=== PATIENT | female | born 1935 | race Caucasian/White ===

== ENCOUNTER 2017-12-12 10:18 | Emergency (ER) | payer MEDICARE, OTHER ==
[2017-12-12 10:26] VITALS: BP 148/78
--- NOTE | 2017-12-12 10:37 | ER Document Report ---
ED Medical Screen (RME) - General Chief Complaint: Diarrhea Stated Complaint: STOMACH PAIN Time Seen by Provider: 12/12/17 10:34 Notes: 82 years old female was referred down to the ED because of last 5 days of loss of appetite unable to eat anything or drink anything, lost about 36 pounds over the last 6 months. And abdominal discomfort, and red stools for the last few days. Had about loose stools for the last 4 days once a days. Did described the stool as sometimes red but only one stool a day. Denies any fever chills. Denies any chest pain shortness of breath or wheezing. Denies any nausea vomiting. History of atrial fibrillation. I have greeted and performed a rapid initial assessment of this patient. A comprehensive ED assessment and evaluation of the patient, analysis of test results and completion of the medical decision making process will be conducted by additional ED providers. PHYSICAL EXAMINATION: GENERAL: Elderly appeared to be weak HEAD: Atraumatic, normocephalic. EYES: Pupils equal round extraocular movements intact, conjunctiva are normal. ENT: Nares patent NECK: Normal range of motion LUNGS: No respiratory distress Musculoskeletal: Normal range of motion NEUROLOGICAL: Normal speech, normal gait. PSYCH: Normal mood, normal affect. SKIN: Warm, Dry, normal turgor, no rashes or lesions noted. TRAVEL OUTSIDE OF THE [place] IN LAST 30 DAYS: No - Related Data Allergies/Adverse Reactions: No Known Allergies Allergy (Verified 12/12/17 10:23) Past Medical History - Past Medical History Cardiac Medical History: Reports: Hx Hypertension - medicated Denies: Hx Heart Attack Pulmonary Medical History: Denies: Hx Asthma Neurological Medical History: Reports: Hx Cerebrovascular Accident - 15yrs ago. Denies: Hx Seizures GI Medical History: Denies: Hx Hepatitis, Hx Hiatal Hernia, Hx Ulcer Infectious Medical History: Denies: Hx Hepatitis Past Surgical History: Denies: Hx Hysterectomy, Hx Mastectomy, Hx Open Heart Surgery, Hx Pacemaker Physical Exam - Vital signs Vitals: Temp Pulse Resp BP Pulse Ox 97.6 F 84 18 148/78 H 98 12/12/17 10:25 12/12/17 10:25 12/12/17 10:25 12/12/17 10:25 12/12/17 10:25 Course - Vital Signs Vital signs: Temp Pulse Resp BP Pulse Ox 97.6 F 84 18 148/78 H 98 12/12/17 10:25 12/12/17 10:25 12/12/17 10:25 12/12/17 10:25 12/12/17 10:25 Doctor's Discharge - Discharge Referrals: ALYCIA ESTEVES PA-C [Primary Care Provider] - Follow up as needed
[2017-12-12 11:25] LABS: ALANINE AMINOTRANSFERASE 16 U/L (9-52); ALBUMIN 4.1 g/dL (3.5-5.0); ALKALINE PHOSPHATASE 78 U/L (38-126); ANION GAP 16 (5-19); ASPARTATE AMINO TRANSFERASE 25 U/L (14-36); BILIRUBIN,DIRECT 0.5 mg/dL (0.0-0.4); BLOOD UREA NITROGEN 18 mg/dL (7-20); CALCIUM 9.1 mg/dL (8.4-10.2); CARBON DIOXIDE 22 mmol/L (22-30); CHLORIDE 105 mmol/L (98-107); GLUCOSE 119 mg/dL (75-110); LIPASE 166.5 U/L (23-300); POTASSIUM 4.3 mmol/L (3.6-5.0); SODIUM 142.9 mmol/L (137-145); TOTAL PROTEIN 8.1 g/dL (6.3-8.2)
[2017-12-12 11:26] LABS: APPEARANCE,URINE SLIGHTLY-CLOUDY; BILIRUBIN,URINE NEGATIVE (NEGATIVE); GLUCOSE, URINE NEGATIVE (NEGATIVE); KETONES,URINE TRACE mg/dL (NEGATIVE); LEUKOCYTE ESTERASE,URINE SMALL (NEGATIVE); NITRITE,URINE NEGATIVE (NEGATIVE); PROTEIN,URINE 100 mg/dL (NEGATIVE); URINE SPECIFIC GRAVITY 1.025
[2017-12-12 11:30] LABS: COLOR,URINE DARK YELLOW
--- NOTE | 2017-12-12 11:30 | RADIOLOGY REPORT (SQ) ---
EXAM DESCRIPTION: ACUTE ABDOMEN SERIES COMPLETED DATE/TIME: 12/12/2017 11:11 am REASON FOR STUDY: Abdominal pain COMPARISON: None. NUMBER OF VIEWS: Three views. TECHNIQUE: Frontal chest, supine abdomen and upright/ abdomen radiographic images acquired. LIMITATIONS: None. FINDINGS: CHEST: Lungs clear of infiltrates. Cardiomegaly. FREE AIR: None. No abnormal gas collections. BOWEL GAS PATTERN: Nonobstructive pattern. No dilated loops or air fluid levels. CALCIFICATIONS: No suspicious calcifications. HARDWARE: None in the abdomen. SOFT TISSUES: No gross mass or suggestion of organomegaly. BONES: Scoliosis. OTHER: No other significant finding. IMPRESSION: Cardiomegaly. Scoliosis. No acute findings in the abdomen or pelvis. TECHNICAL DOCUMENTATION: JOB ID: [id number] [employer]- All Rights Reserved Reading location - IP/workstation name: [email or web address]
--- NOTE | 2017-12-12 11:42 | ER Document Report ---
ED General - General Mode of Arrival: Ambulatory Information source: Patient TRAVEL OUTSIDE OF THE [place] IN LAST 30 DAYS: No <RUTH ARAUJO - Last Filed: 12/12/17 15:10> <GABRIELLE HERNANDEZ - Last Filed: 12/12/17 19:26> - General Chief Complaint: Diarrhea Stated Complaint: STOMACH PAIN Time Seen by Provider: 12/12/17 10:34 Notes: 82 y.o female with HTN for which she takes Metoprolol and a PMHx of 3 strokes presents to the ED with diarrhea. She reports that about 3 days ago in the morning after waking up she was lying down when she heard a pop in her abd. She states that when she stood up she was dizzy and had a "gel like" diarrhea. She states that she has had loose stool every time she has had a BM since hearing the pop. Pt also reports that she hasn't been hungry and was not able to eat much even though she was making herself eat. Pt denies any pain at the time of the pop and denies any current abd pain or vomiting. Son at bedside also reports that she has recently lost 60 lbs. He states that she was not able to eat any food without vomiting it up for a couple weeks along with her just not wanting to eat. Pt is currently taking Coumadin. (RUTH ARAUJO) - Related Data Allergies/Adverse Reactions: No Known Allergies Allergy (Verified 12/12/17 10:23) Past Medical History - General Information source: Patient - Social History Smoking Status: Never Smoker Chew tobacco use (# tins/day): No Frequency of alcohol use: None Drug Abuse: None Patient has suicidal ideation: No Patient has homicidal ideation: No - Past Medical History Cardiac Medical History: Reports: Hx Hypertension - medicated Denies: Hx Heart Attack Pulmonary Medical History: Denies: Hx Asthma Neurological Medical History: Reports: Hx Cerebrovascular Accident - 15yrs ago. Denies: Hx Seizures Renal/ Medical History: Denies: Hx Peritoneal Dialysis GI Medical History: Denies: Hx Hepatitis, Hx Hiatal Hernia, Hx Ulcer Infectious Medical History: Denies: Hx Hepatitis Past Surgical History: Reports: Hx Appendectomy, Hx Tonsillectomy. Denies: Hx Hysterectomy, Hx Mastectomy, Hx Open Heart Surgery, Hx Pacemaker <RUTH ARAUJO - Last Filed: 12/12/17 15:10> - Social History Family History: Reviewed & Not Pertinent <GABRIELLE HERNANDEZ - Last Filed: 12/12/17 19:26> Review of Systems - Review of Systems Constitutional: See HPI, Other - dizziness, Weight loss - 60lbs EENT: No symptoms reported Cardiovascular: No symptoms reported Respiratory: No symptoms reported Gastrointestinal: See HPI, Diarrhea, Poor appetite, Other - "popping in abd". denies: Abdominal pain, Vomiting Genitourinary: No symptoms reported Female Genitourinary: No symptoms reported Musculoskeletal: No symptoms reported Skin: No symptoms reported Hematologic/Lymphatic: No symptoms reported Neurological/Psychological: No symptoms reported -: Yes All other systems reviewed and negative <RUTH ARAUJO - Last Filed: 12/12/17 15:10> Physical Exam <RUTH ARAUJO - Last Filed: 12/12/17 15:10> <GABRIELLE HERNANDEZ - Last Filed: 12/12/17 19:26> - Vital signs Vitals: Temp Pulse Resp BP Pulse Ox 97.6 F 84 18 148/78 H 98 12/12/17 10:25 12/12/17 10:25 12/12/17 10:25 12/12/17 10:25 12/12/17 10:25 - Notes Notes: PHYSICAL EXAM GENERAL: Alert, interacts well. No acute distress. HEAD: Normocephalic, atraumatic. EYES: Pupils equal, round, and reactive to light. Extraocular movements intact. ENT: Oral mucosa moist, tongue midline. NECK: Full range of motion. Supple. Trachea midline. LUNGS: Clear to auscultation bilaterally, no wheezes, rales, or rhonchi. No respiratory distress. HEART: Regular rate and rhythm. No murmurs, gallops, or rubs. ABDOMEN: Soft. RLQ tender to palp. Non-distended. Bowel sounds present in all 4 quadrants. No guarding, rebound, or rigidity. EXTREMITIES: Moves all 4 extremities spontaneously. No edema, radial and dorsalis pedis pulses 2/4 bilaterally. No cyanosis. NEUROLOGICAL: Alert and oriented x3. Normal speech. PSYCH: Normal affect, normal mood. (RUTH ARAUJO) Course - Laboratory Result Diagrams: 12/12/17 12:32 12/12/17 10:52 <RUTH ARAUJO - Last Filed: 12/12/17 15:10> - Laboratory Result Diagrams: 12/12/17 12:32 12/12/17 10:52 <GABRIELLE HERNANDEZ - Last Filed: 12/12/17 19:26> - Re-evaluation Re-evalutation: 12/12/17 16:01 CT scan shows mild diverticulosis and small ovarian cyst on each side, almost certainly benign. No explanation for the diarrhea and weight loss that she has been having. CBC is unremarkable, CMP shows normal BUN and creatinine, direct bilirubin only slightly elevated at 0.5, cardiac enzymes negative 1, lipase normal, urinalysis shows small blood and small leukocyte esterase, 2+ bacteria, 4 squamous epithelial cells. Patient does not have any symptoms of urinary tract infection at this time, this will be sent for culture and followed up as an outpatient, occult blood is negative, C. difficile toxin PCR is negative. Acute abdominal series which included a chest x-ray does not show any acute process. No indication for admission at this time, no signs of dehydration. At this point patient will be discharged home, encouraged to follow-up as an outpatient with her primary care physician, she will certainly need further workup for the unintentional weight loss of 60 pounds. She should also see GI for her diarrhea should continue. (GABRIELLE HERNANDEZ) - Vital Signs Vital signs: Temp Pulse Resp BP Pulse Ox 97.6 F 84 18 148/78 H 98 12/12/17 10:25 12/12/17 10:25 12/12/17 10:30 12/12/17 10:25 12/12/17 10:25 - Laboratory Laboratory results interpreted by me: 12/12/17 12/12/17 12/12/17 10:52 10:52 12:32 RDW 14.9 H Est GFR (Non-Af Amer) 53 L Glucose 119 H Direct Bilirubin 0.5 H Urine Protein 100 H Urine Ketones TRACE H Urine Blood SMALL H Urine Urobilinogen 2.0 H Ur Leukocyte Esterase SMALL H Discharge <RUTH ARAUJO - Last Filed: 12/12/17 15:10> <GABRIELLE HERNANDEZ - Last Filed: 12/12/17 19:26> - Discharge Clinical Impression: Unintentional weight loss Diarrhea Qualifiers: Diarrhea type: unspecified type Qualified Code(s): R19.7 - Diarrhea, unspecified Condition: Stable Disposition: HOME, SELF-CARE Additional Instructions: Today we did not find any signs of infection. Your CAT scan did not show any infection in your abdomen. Your chest x-ray did not show any infection in your chest or explanation for your cough. I do not know what is causing your diarrhea at this time. You may take Imodium as directed [id number]. Please follow-up with your primary care physician as an outpatient. I am very concerned by her unintentional weight loss. This could be a sign of a problem with your thyroid or a sign of cancer that we did not find today. If your diarrhea continues you will want to follow-up with a dinkey engineer as well. Referrals: ALYCIA ESTEVES PA-C [Primary Care Provider] - Follow up as needed Scribe Attestation: 12/12/17 19:26 I personally performed the services described in the documentation, reviewed and edited the documentation which was dictated to the scribe in my presence, and it accurately records my words and actions. (GABRIELLE HERNANDEZ) Scribe Documentation - Scribe Written by Kandy:: Kandy Acosta 12/12/17 1145 acting as scribe for :: Mickey <RUTH ARAUJO - Last Filed: 12/12/17 15:10>
[2017-12-12] MEDS ORDERED: RINGERS SOLUTION,LACTATED 1,000 ML IV ONE (11:47)
[2017-12-12 13:13] LABS: ABSOLUTE EOSINOPHILS # (AUTO) 0.1 10^3/uL (0.0-0.6); ABSOLUTE LYMPHOCYTES (AUTO) 1.7 10^3/uL (0.5-4.7); ABSOLUTE MONOCYTES (AUTO) 0.4 10^3/uL (0.1-1.4); ABSOLUTE NEUT (AUTO) 2.6 10^3/uL (1.7-8.2); BASOPHILS % (AUTO) 0.5 % (0-2); EOSINOPHILS % (AUTO) 1.8 % (0-6); HEMATOCRIT 37.2 % (36.0-47.0); HEMOGLOBIN 12.4 g/dL (12.0-15.5); LYMPHOCYTES % (AUTO) 35.9 % (13-45); MEAN CORPUSCULAR HEMOGLOBIN 28.5 pg (27.0-33.4); MEAN CORPUSCULAR HGB CONC 33.4 g/dL (32.0-36.0); MEAN CORPUSCULAR VOLUME 85 fl (80-97); MONOCYTES % (AUTO) 7.8 % (3-13); PLATELET COUNT 220 10^3/uL (150-450); RED BLOOD COUNT 4.37 10^6/uL (3.72-5.28); RED CELL DISTRIBUTION WIDTH 14.9 % (11.5-14.0); TOTAL CELLS COUNTED % (AUTO) 100 %; WHITE BLOOD COUNT 4.9 10^3/uL (4.0-10.5)
--- NOTE | 2017-12-12 15:54 | RADIOLOGY REPORT (SQ) ---
EXAM DESCRIPTION: CT ABD/PELVIS WITH IV ORAL COMPLETED DATE/TIME: 12/12/2017 3:26 pm REASON FOR STUDY: RLQ pain, tenderness to palpation COMPARISON: None. TECHNIQUE: CT scan of the abdomen and pelvis performed using helical scanning technique with dynamic intravenous contrast injection. Oral contrast. Images reviewed with lung, soft tissue, and bone win dows. Reconstructed coronal and sagittal MPR images reviewed. Delayed images for evaluation of the ur inary system also acquired. All images stored on PACS. All CT scanners at this facility use dose modulation, iterative reconstruction, and/or weight based d osing when appropriate to reduce radiation dose to as low as reasonably achievable (ALARA). [facility]: Dose Right [facility]: CareDose [facility]: Dose Right [facility]: Teradose 4D [facility]: ozuke CONTRAST TYPE AND DOSE: contrast/concentration: Isovue 370.00 mg/ml; Total Contrast Delivered: 65.0 ml; Total Saline Delivered: 45.0 ml RENAL FUNCTION: BUN 18 creatinine 1 RADIATION DOSE: CT Rad equipment meets quality standard of care and radiation dose reduction techniq ues were employed. CTDIvol: 6.6 - 9.5 mGy. DLP: 1106 mGy-cm.. LIMITATIONS: None. FINDINGS: LOWER CHEST: Cardiomegaly. LIVER: Normal in size and appearance. SPLEEN: Normal size. No focal lesions. PANCREAS: No masses. No significant calcifications. No adjacent inflammation or peripancreatic fluid collections. Pancreatic duct not dilated. GALLBLADDER: No identified stones by CT criteria. No inflammatory changes to suggest cholecystitis. ADRENAL GLANDS: No significant masses or asymmetry. RIGHT KIDNEY AND URETER: No solid masses. No significant calcifications. No hydronephrosis or hyd roureter. LEFT KIDNEY AND URETER: Mild cortical scarring. No masses. No significant calcifications. No hyd ronephrosis or hydroureter. AORTA AND VESSELS: No aneurysm. No dissection. Renal arteries, SMA, celiac without stenosis. RETROPERITONEUM: No retroperitoneal adenopathy, hemorrhage or masses. BOWEL AND PERITONEAL CAVITY: Mild descending and sigmoid diverticulosis with no acute inflammatory ch anges. APPENDIX: Surgically absent. PELVIS: There is a 3 cm thin walled right adnexal cyst. There is a 2.5 cm left adnexal cyst. ABDOMINAL WALL: No masses. No hernias. BONES: No significant or acute findings. OTHER: No other significant finding. IMPRESSION: 1. Mild diverticulosis coli. 2. There is a small ovarian cyst on each side. Almost certainly benign. Annual sonographic follow- up is recommended. COMMENT: ACR ultrasound best practices TECHNICAL DOCUMENTATION: JOB ID: [id number] Quality ID # [id number]: Final reports with documentation of one or more dose reduction techniques (e.g., Au tomated exposure control, adjustment of the mA and/or kV according to patient size, use of iterative reconstruction technique) 2010 [employer]- All Rights Reserved Reading location - IP/workstation name: [email or web address]
== END 2017-12-12 16:26 | disposition home or self-care (01) ==
LOC: ER 10:18
DX: R19.7 Diarrhea, unspecified (principal); R63.4 Abnormal weight loss; Z68.26 Body mass index [BMI] 26.0-26.9, adult; R63.0 Anorexia; K57.30 Diverticulosis of large intestine without perforation or abscess without bleeding; N83.202 Unspecified ovarian cyst, left side; N83.201 Unspecified ovarian cyst, right side; R42 Dizziness and giddiness; R10.813 Right lower quadrant abdominal tenderness; I10 Essential (primary) hypertension; Z79.899 Other long term (current) drug therapy
CPT/HCPCS: 99284; 96360; 36415; 87086; 83690; 85025; 82272; 80076; 80048; 81001; 84484; 87493; 74022; 74177; J7120

== ENCOUNTER 2020-03-03 18:35 | Inpatient (IN) | payer MEDICARE ==
[2020-03-03 19:03] LABS: PROTHROMBIN TIME 19.2 SEC (11.4-15.4)
--- NOTE | 2020-03-03 19:03 | RADIOLOGY REPORT (SQ) ---
EXAM DESCRIPTION: CHEST SINGLE VIEW IMAGES COMPLETED DATE/TIME: 03/03/2020 5:42 pm REASON FOR STUDY: stroke s/ss COMPARISON: The abdomen and pelvis, 12/12/2017 EXAM PARAMETERS: NUMBER OF VIEWS: One view. TECHNIQUE: Single frontal radiographic view of the chest acquired. RADIATION DOSE: NA LIMITATIONS: None. FINDINGS: LUNGS AND PLEURA: There is focal consolidation in the right mid to lower lung, probably co mbination of consolidation and effusion. No pneumothorax. Left lung is clear. MEDIASTINUM AND HILAR STRUCTURES: No masses. Contour normal. HEART AND VASCULAR STRUCTURES: Moderate cardiomegaly. No pulmonary vascular congestion. BONES: No acute findings. HARDWARE: None in the chest. OTHER: No other significant finding. IMPRESSION: Consolidation in the right mid to lower lung probably a combination of airspace disease and pleural effusion. TECHNICAL DOCUMENTATION: JOB ID: [id number] 2010 [employer]- All Rights Reserved Reading location - IP/workstation name: [email or web address]
[2020-03-03 19:04] LABS: PARTIAL THROMBOPLASTIN TIME 30.7 SEC (23.5-35.8)
[2020-03-03 19:11] LABS: ABSOLUTE LYMPHOCYTES (AUTO) 0.6 10^3/uL (0.5-4.7); ABSOLUTE MONOCYTES (AUTO) 0.2 10^3/uL (0.1-1.4); ABSOLUTE NEUT (AUTO) 6.9 10^3/uL (1.7-8.2); BASOPHILS % (AUTO) 0.2 % (0-2); HEMOGLOBIN 13.1 g/dL (12.0-15.5); MEAN CORPUSCULAR HEMOGLOBIN 29.5 pg (27.0-33.4); MEAN CORPUSCULAR HGB CONC 33.5 g/dL (32.0-36.0); MEAN CORPUSCULAR VOLUME 88 fl (80-97); MONOCYTES % (AUTO) 2.1 % (3-13); PLATELET COUNT 207 10^3/uL (150-450); RED BLOOD COUNT 4.42 10^6/uL (3.72-5.28); RED CELL DISTRIBUTION WIDTH 14.2 % (11.5-14.0); SEGMENTED NEUTROPHILS % (AUTO) 89.7 % (42-78); TOTAL CELLS COUNTED % (AUTO) 100 %; WHITE BLOOD COUNT 7.7 10^3/uL (4.0-10.5)
--- NOTE | 2020-03-03 19:16 | RADIOLOGY REPORT (SQ) ---
EXAM DESCRIPTION: CT HEAD WITHOUT IMAGES COMPLETED DATE/TIME: 03/03/2020 7:02 pm REASON FOR STUDY: stroke s/ss COMPARISON: None. TECHNIQUE: Axial images acquired through the brain without intravenous contrast. Images reviewed wi th bone, brain and subdural windows. Additional sagittal and coronal reconstructions were generated. Images stored on PACS. All CT scanners at this facility use dose modulation, iterative reconstruction, and/or weight based d osing when appropriate to reduce radiation dose to as low as reasonably achievable (ALARA). [facility]: Dose Right [facility]: CareDose [facility]: Dose Right [facility]: Teradose 4D [facility]: Smart YongChe RADIATION DOSE: CT Rad equipment meets quality standard of care and radiation dose reduction techniq ues were employed. CTDIvol: 53.2 mGy. DLP: 1017 mGy-cm.mGy. LIMITATIONS: None. FINDINGS: VENTRICLES: Prominent. CEREBRUM: No masses. No hemorrhage. No midline shift. Areas of low density in the white matter mos t likely due to chronic micro-vascular ischemic change. No evidence for acute infarction. CEREBELLUM: No masses. No hemorrhage. No alteration of density. No evidence for acute infarction. EXTRAAXIAL SPACES: Age-related involutional change. No fluid collections. No masses. ORBITS AND GLOBE: No intra- or extraconal masses. Normal contour of globe without masses. CALVARIUM: No fracture. PARANASAL SINUSES: No fluid or mucosal thickening. SOFT TISSUES: No mass or hematoma. OTHER: No other significant finding. IMPRESSION: CHRONIC CHANGES OF ATROPHY AND MICROVASCULAR ISCHEMIA. NO ACUTE PROCESS. EVIDENCE OF ACUTE STROKE: NO. TECHNICAL DOCUMENTATION: JOB ID: [id number] Quality ID # [id number]: Final reports with documentation of one or more dose reduction techniques (e.g., Au tomated exposure control, adjustment of the mA and/or kV according to patient size, use of iterative reconstruction technique) 2010 [employer]- All Rights Reserved Reading location - IP/workstation name: [email or web address]
[2020-03-03 19:27] LABS: ALBUMIN 4.3 g/dL (3.5-5.0); ALKALINE PHOSPHATASE 83 U/L (38-126); ANION GAP 11 (5-19); ASPARTATE AMINO TRANSFERASE 24 U/L (14-36); BILIRUBIN,TOTAL 1.1 mg/dL (0.2-1.3); BLOOD UREA NITROGEN 38 mg/dL (7-20); CALCIUM 9.2 mg/dL (8.4-10.2); CARBON DIOXIDE 25 mmol/L (22-30); CHLORIDE 102 mmol/L (98-107); CREATINE KINASE 38 U/L (30-135); GLUCOSE 166 mg/dL (75-110); POTASSIUM 5.1 mmol/L (3.6-5.0); TOTAL PROTEIN 8.3 g/dL (6.3-8.2)
[2020-03-03 19:39] LABS: CREATINE KINASE MB 0.46 ng/mL (<4.55); TROPONIN I < 0.012 ng/mL
--- NOTE | 2020-03-03 20:41 | ER Document Report ---
ED General - General Chief Complaint: S/S of Possible Stroke Stated Complaint: POSSIBLE STROKE Time Seen by Provider: 03/03/20 20:09 Primary Care Provider: ALYCIA ESTEVES PA-C [Primary Care Provider] - Follow up as needed TRAVEL OUTSIDE OF THE [place] IN LAST 30 DAYS: No - HPI Notes: Patient is an 84-year-old female, brought into the emergency department for evaluation by EMS. Patient's son is the primary historian. He last saw her on 819 at 1400 hrs. He states that when he went back to see her today, she was confused. He states that she does have some left-sided facial weakness from a prior stroke, but is otherwise able to converse normally, care for herself, walk without assistance. The patient at one point complained of some pain in her right leg, otherwise has no acute complaints or concerns. Patient's son does note that for 2 weeks the patient was out of her Coumadin. She does have a known history of atrial fibrillation. She was just restarted on it. Son does note that she was complaining of some left leg numbness nearly a week ago. - Related Data Allergies/Adverse Reactions: No Known Allergies Allergy (Verified 12/12/17 10:23) Past Medical History - General Information source: Patient, Relative - Social History Smoking Status: Never Smoker Family History: CVA, Hypertension - Past Medical History Cardiac Medical History: Reports: Hx Atrial Fibrillation, Hx Hypertension - medicated Denies: Hx Heart Attack Pulmonary Medical History: Denies: Hx Asthma Neurological Medical History: Reports: Hx Cerebrovascular Accident - 15yrs ago. Denies: Hx Seizures Renal/ Medical History: Denies: Hx Peritoneal Dialysis GI Medical History: Denies: Hx Hepatitis, Hx Hiatal Hernia, Hx Ulcer Infectious Medical History: Denies: Hx Hepatitis Past Surgical History: Reports: Hx Appendectomy, Hx Tonsillectomy. Denies: Hx Hysterectomy, Hx Mastectomy, Hx Open Heart Surgery, Hx Pacemaker Review of Systems - Review of Systems -: Yes ROS unobtainable due to patient's medical condition Physical Exam - Vital signs Vitals: Resp Pulse Ox 22 H 97 03/03/20 18:44 03/03/20 18:44 - Notes Notes: This is an 84-year-old female who appears her stated age, no acute distress. Vital signs reviewed, please refer to chart. Head is normocephalic, atraumatic. Pupils equal round, reactive to light. Neck is supple without meningismus. Heart is irregularly irregular. Lungs are clear to auscultation bilaterally. A bdomen is soft, nontender, normoactive bowel sounds throughout. Extremities without cyanosis, clubbing. Posterior calves are nontender. Peripheral pulses are equal. Skin is warm and dry. Patient is drowsy, but arouses easily to verbal stimuli. She is awake and alert. She is unable to answer any orientation questions. She has a significant dysarthria as well as expressive a aphasia. She has left-sided facial droop noted. 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 She does not move her eyes past the midline. She is hyperreflexive on the left with diminished sensation. Unable to assess [id number], rapid alternating movements. Patient only intermittently is able to follow commands. Course - Re-evaluation Re-evalutation: 03/03/20 20:42 Patient presents to the emergency department for evaluation. She has a history of atrial fibrillation, was off of her Coumadin. Her findings are most consistent with an acute CVA. Unfortunately, her last known well was over 24 hours ago. Also her INR is high at 1.6. The patient is not a candidate for any sort of intervention. She does, however, have significant left-sided neglect and flaccid paralysis, she will need inpatient management and therapy. Her blood pressure is unremarkable at 119/48 at this time. She is otherwise stable. We will continue to monitor, contact medicine for admission. 03/03/20 21:56 Chest xray reveals possible infiltrate. Blood cultures and antibiotics ordered. I spoke with Dr. Felipe, who will admit the patient for further care. - Vital Signs Vital signs: Temp Pulse Resp BP Pulse Ox 59 L 19 118/102 H 97 03/03/20 20:59 03/03/20 21:01 03/03/20 21:01 03/03/20 21:01 - Laboratory Result Diagrams: 03/03/20 18:47 03/03/20 18:47 Laboratory results interpreted by me: 03/03/20 03/03/20 03/03/20 18:47 18:47 18:47 RDW 14.2 H Lymph % (Auto) 8.0 L Gates % (Auto) 2.1 L Seg Neutrophils % 89.7 H PT 19.2 H Potassium 5.1 H BUN 38 H Est GFR ( Amer) 51 L Est GFR (MDRD) Non-Af 42 L Glucose 166 H Total Protein 8.3 H - Diagnostic Test Radiology reviewed: Image reviewed, Reports reviewed Radiology results interpreted by me: 03/03/20 21:57 Chest X-Ray 03/03/20 18:37 IMPRESSION: Consolidation in the right mid to lower lung probably a combination of airspace disease and pleural effusion. Head CT 03/03/20 18:37 IMPRESSION: CHRONIC CHANGES OF ATROPHY AND MICROVASCULAR ISCHEMIA. NO ACUTE PROCESS. EVIDENCE OF ACUTE STROKE: NO. - EKG Interpretation by Me Additional EKG results interpreted by me: 03/03/20 21:58 Atrial fibrillation with a rate of 78 bpm. Left axis deviation, LBBB. No old studies available for comparison. Discharge - Discharge Clinical Impression: CVA (cerebral vascular accident) Qualifiers: CVA mechanism: unspecified Qualified Code(s): I63.9 - Cerebral infarction, unspecified RML pneumonia Qualifiers: Pneumonia type: due to unspecified organism Qualified Code(s): J18.9 - Pneumonia, unspecified organism Condition: Stable Disposition: ADMITTED INPATIENT Admitting Provider: Matteo (Hospitalist) Unit Admitted: IMCU Referrals: ALYCIA ESTEVES PA-C [Primary Care Provider] - Follow up as needed
[2020-03-03] MEDS ORDERED: CEFEPIME 1 GM/D5W RTU 1 GM/50 ML RTUPB IV ONE (21:55)
[2020-03-03] MEDS ORDERED: ACETAMINOPHEN 650 MG SUPP.RECT PR PRN (22:03)
[2020-03-03] MEDS ORDERED: ONDANSETRON HCL INJ/PF 4 MG/2 ML SDV IV PRN (22:03)
[2020-03-03] MEDS ORDERED: HYDRALAZINE HCL INJ/PF 20 MG/1 ML SDV IV PRN (22:07)
[2020-03-03] MEDS ORDERED: LORAZEPAM INJ 2 MG/1 ML VIAL IV PRN (22:07)
[2020-03-03] MEDS ORDERED: METOPROLOL TARTRATE PF/INJ 5 MG/5 ML SDV IV PRN (22:07)
[2020-03-03] MEDS ORDERED: ENOXAPARIN SODIUM INJ 80 MG/0.8 ML DISP.SYRIN SUBCUT SCH (22:15)
[2020-03-03] MEDS ORDERED: ENOXAPARIN SODIUM INJ 80 MG/0.8 ML DISP.SYRIN SUBCUT ONE (22:30)
[2020-03-03] MEDS: DEXTROSE 5%-LACTATED RINGERS 1,000 ML IV PRN (23:21)
[2020-03-03] MEDS: FAMOTIDINE INJ/PF 20 MG/2 ML SDV IV SCH (23:21)
--- NOTE | 2020-03-04 04:26 | PDOC H&P ---
History of Present Illness Admission Date/PCP: 03/03/2020 22:00 ALYCIA ESTEVES PA-C Patient complains of: Left-sided weakness History of Present Illness: CHERYL ESCALONA is a 84 year old female who presented to the emergency room via EMS with left-sided weakness. Patient has an expressive aphasia and is confused and therefore unable to provide information to her history. Her son admits that he last saw her in her usual state at about 2 PM yesterday. When he went to visit her today he found her confused and noticed that she was unable to move her left side. He further adds that she had been out of Coumadin for her chronic atrial fibrillation for a period of about 2 weeks and just restarted taking Coumadin 2 days ago. She has a remote history of prior stroke. In the emergency room the patient was found to have a dense left hemiparesis, expressive aphasia, severe dysarthria and severe left-sided neglect. CT scan showed no acute changes and the remainder of her evaluation was unremarkable. Subsequently in the hospital IMCU on the stroke protocol. Past Medical History Past Medical History: Due to patient's acute neurologic changes and confusion her past medical history, surgical history, social history and family medical history are obtained from the best available reliable source. Cardiac Medical History: Reports: Atrial Fibrillation, Hyperlipidema, Hypertension Denies: Coronary Artery Disease, Myocardial Infarction Pulmonary Medical History: Denies: Asthma, Chronic Obstructive Pulmonary Disease (COPD) EENT Medical History: Reports: Cataracts Denies: Ears - Hearing aids Neurological Medical History: Reports: Ischemic CVA Denies: Hemorrhagic CVA, Seizures Endocrine Medical History: Reports: Obesity Denies: Diabetes Mellitus Type 1, Diabetes Mellitus Type 2, Hyperthyroidism, Hypothyroidism Renal/ Medical History: Denies: Chronic Kidney Disease, Nephrolithiasis Malignancy Medical History: Reports: None GI Medical History: Reports: Gastroesophageal Reflux Disease Denies: Cirrhosis, Hepatitis, Peptic Ulcer Disease Musculoskeltal Medical History: Reports: Arthritis Denies: Gout Skin Medical History: Reports: Psoriasis Denies: Eczema Psychiatric Medical History: Denies: Alcohol Dependency, Substance Abuse, Tobacco Dependency Traumatic Medical History: Reports: None Hematology: Reports: Other - Easy bruising while on warfarin Denies: Anemia, Bleeding Tendencies Infectious Medical History: Reports: None Past Surgical History Past Surgical History: Due to patient's acute neurologic changes and confusion her past medical history, surgical history, social history and family medical history are obtained from the best available reliable source. Past Surgical History: Reports: Appendectomy, Herniorrhaphy - Right inguinal herniorrhaphy, Tonsillectomy, Tubal Ligation, Other - Bilateral cataract surgery Social History Information Source: Relative, [facility] Lives with: Alone Smoking Status: Never Smoker Electronic Cigarette use?: No Frequency of Alcohol Use: None Hx Recreational Drug Use: No Drugs: None Hx Prescription Drug Abuse: No Past Social History Note: Due to patient's acute neurologic changes and confusion her past medical his tory, surgical history, social history and family medical history are obtained from the best available reliable source. - Advance Directive Resuscitation Status: Full Code Surrogate healthcare decision maker:: Young Justin Family History Family History: CVA, Hypertension Family History: Due to patient's acute neurologic changes and confusion her past medical history , surgical history, social history and family medical history are obtained from the best available reliable source. Parental Family History Reviewed: Yes Children Family History Reviewed: No Sibling(s) Family History Reviewed.: Yes Medication/Allergy Home Medications: Furosemide [Lasix 40 mg Tablet] 40 mg PO BID 03/03/20 Lisinopril [Zestril] 2.5 mg PO DAILY 03/03/20 Metoprolol Succinate [Toprol Xl] 100 mg PO DAILY 03/03/20 Warfarin Sodium [Jantoven 5 mg Tablet] mg PO 03/03/20 Allergies/Adverse Reactions: No Known Allergies Allergy (Verified 12/12/17 10:23) Review of Systems ROS unobtainable: Due to mental status - Acute confusion and expressive aphasia Physical Exam Vital Signs: Temp Pulse Resp BP Pulse Ox 59 L 19 118/102 H 97 03/03/20 20:59 03/03/20 21:01 03/03/20 21:01 03/03/20 21:01 Intake & Output 03/01/20 03/02/20 03/03/20 23:59 23:59 23:59 Weight 79.379 kg General appearance: PRESENT: no acute distress, cooperative, obese Head exam: PRESENT: atraumatic, normocephalic Eye exam: PRESENT: conjunctiva pink. ABSENT: conjunctival injection, scleral icterus Ear exam: PRESENT: normal external ear exam. ABSENT: bleeding, drainage Mouth exam: PRESENT: dry mucosa, neck supple Neck exam: ABSENT: thyromegaly, tracheal deviation Respiratory exam: PRESENT: rales - Coarse rales right anterior chest, rhonchi - Right anterior chest, symmetrical, unlabored Cardiovascular exam: PRESENT: irregular rhythm - Irregularly irregular rate and rhythm. ABSENT: clicks, gallop, rubs Pulses: PRESENT: normal radial pulses, normal dorsalis pedis pul Vascular exam: PRESENT: normal capillary refill. ABSENT: pallor GI/Abdominal exam: PRESENT: normal bowel sounds, soft Rectal exam: PRESENT: deferred Extremities exam: ABSENT: joint swelling, pedal edema Musculoskeletal exam: ABSENT: deformity, dislocation Neurological exam: PRESENT: alert, CN II-XII grossly intact - Left facial weakness, motor sensory deficit - Dense left hemiparesis, aphasic - Expressive aphasia, other - Severe dysarthria Psychiatric exam: PRESENT: other - Unable to assess due to expressive aphasia Skin exam: PRESENT: dry, intact, warm. ABSENT: jaundice, rash, urticaria Results Laboratory Results: 03/03/20 18:47 03/03/20 18:47 03/03/20 03/03/20 18:47 18:47 WBC 7.7 RBC 4.42 Hgb 13.1 Hct 39.0 MCV 88 MCH 29.5 MCHC 33.5 RDW 14.2 H Plt Count 207 Seg Neutrophils % 89.7 H Sodium 137.8 Potassium 5.1 H Chloride 102 Carbon Dioxide 25 Anion Gap 11 BUN 38 H Creatinine 1.22 Est GFR ( Amer) 51 L Glucose 166 H Calcium 9.2 Total Bilirubin 1.1 AST 24 Alkaline Phosphatase 83 Total Protein 8.3 H Albumin 4.3 03/03/20 03/03/20 18:47 18:47 Creatine Kinase 38 CK-MB (CK-2) 0.46 Troponin I < 0.012 Impressions: Chest X-Ray 03/03/20 18:37 IMPRESSION: Consolidation in the right mid to lower lung probably a combination of airspace disease and pleural effusion. Head CT 03/03/20 18:37 IMPRESSION: CHRONIC CHANGES OF ATROPHY AND MICROVASCULAR ISCHEMIA. NO ACUTE PROCESS. EVIDENCE OF ACUTE STROKE: NO. Assessment and Plan - Diagnosis (1) Acute ischemic cerebrovascular accident (CVA) involving right middle cerebral artery territory Is this a current diagnosis for this admission?: Yes (2) L pneumonia Qualifiers: Pneumonia type: aspiration pneumonia Aspiration pneumonia type: unspecified Qualified Code(s): J69.0 - Pneumonitis due to inhalation of food and vomit Is this a current diagnosis for this admission?: Yes (3) Hypertension Qualifiers: Hypertension type: essential hypertension Qualified Code(s): I10 - Essential (primary) hypertension Is this a current diagnosis for this admission?: Yes (4) Hyperlipidemia Qualifiers: Hyperlipidemia type: unspecified Qualified Code(s): E78.5 - Hyperlipidemia, unspecified Is this a current diagnosis for this admission?: Yes (5) Gastroesophageal reflux disease Qualifiers: Esophagitis presence: esophagitis presence not specified Qualified Code(s): K21.9 - Gastro-esophageal reflux disease without esophagitis Is this a current diagnosis for this admission?: Yes (6) Arthritis Is this a current diagnosis for this admission?: Yes - Plan Summary Summary: Patient will be admitted to [facility] per the stroke protocol where she will receive routine supportive and symptomatic cares. She will receive Lovenox 1 mg/kg subcutaneously every 12 hours. She will receive cefepime 1 g IV every 12 hours. She will receive Ativan 1 mg IV every 4 hours as needed for anxiety or restlessness. She will undergo routine testing per the stroke protocol. She will be n.p.o. until she can be thoroughly evaluated by speech therapy for her ability to swallow. Routine consultations with case management, PT, OT and stro ke nurse will be obtained per the stroke protocol. - Time Time Spent with patient: Less than 15 minutes Medications reviewed and adjusted accordingly: Yes Anticipated [facility] Anticipated Discharge Timeframe: when bed available - Inpatient Certification Based on my medical assessment, after consideration of the patient's comorbidities, presenting symptoms, or acuity I expect that the services needed warrant INPATIENT care.: Yes I certify that my determination is in accordance with my understanding of Medicare's requirements for reasonable and necessary INPATIENT services [42 CFR 412.3e].: Yes Medical Necessity: Significant Comorbidiites Make Outpatient Treatment Too Risky, Need Close Monitoring Due to Risk of Patient Decompensation, Need For IV Fluids, Need For Continuous Telemetry Monitoring, Need for Neurological Checks, Need for IV Antibiotics, Risk of Complication if Not Cared For in Hospital
[2020-03-04 07:04] LABS: HEMATOCRIT 38.6 % (36.0-47.0); MEAN CORPUSCULAR HEMOGLOBIN 29.5 pg (27.0-33.4); MEAN CORPUSCULAR HGB CONC 33.7 g/dL (32.0-36.0); MEAN CORPUSCULAR VOLUME 88 fl (80-97); PLATELET COUNT 172 10^3/uL (150-450); RED BLOOD COUNT 4.42 10^6/uL (3.72-5.28); RED CELL DISTRIBUTION WIDTH 14.7 % (11.5-14.0); WHITE BLOOD COUNT 7.7 10^3/uL (4.0-10.5)
[2020-03-04 07:17] LABS: ALBUMIN 3.9 g/dL (3.5-5.0); ALKALINE PHOSPHATASE 71 U/L (38-126); ANION GAP 11 (5-19); ASPARTATE AMINO TRANSFERASE 22 U/L (14-36); BILIRUBIN,DIRECT 0.1 mg/dL (0.0-0.4); BILIRUBIN,TOTAL 1.2 mg/dL (0.2-1.3); BLOOD UREA NITROGEN 39 mg/dL (7-20); CARBON DIOXIDE 26 mmol/L (22-30); CHLORIDE 103 mmol/L (98-107); CHOLESTEROL 194.68 mg/dL (0-200); GLUCOSE 147 mg/dL (75-110); POTASSIUM 4.6 mmol/L (3.6-5.0); TOTAL PROTEIN 7.5 g/dL (6.3-8.2); TRIGLYCERIDES 102 mg/dL (<150)
[2020-03-04 07:28] LABS: DIRECT LDL 114 mg/dL (<100)
[2020-03-04 08:22] LABS: APPEARANCE,URINE SLIGHTLY-CLOUDY; BILIRUBIN,URINE NEGATIVE (NEGATIVE); COLOR,URINE YELLOW; GLUCOSE, URINE NEGATIVE (NEGATIVE); KETONES,URINE NEGATIVE (NEGATIVE); LEUKOCYTE ESTERASE,URINE SMALL (NEGATIVE); NITRITE,URINE NEGATIVE (NEGATIVE); PROTEIN,URINE NEGATIVE (NEGATIVE); URINE SPECIFIC GRAVITY 1.017; UROBILINOGEN,URINE NEGATIVE mg/dL (<2.0)
--- NOTE | 2020-03-04 10:07 | EKG REPORT ---
SEVERITY:- ABNORMAL ECG - ATRIAL FIBRILLATION, V-RATE 73-94 LEFT BUNDLE BRANCH BLOCK : Confirmed by: Zoe Anthony 04-Mar-2020 10:06:58
[2020-03-04] MEDS: FAMOTIDINE INJ/PF 20 MG/2 ML SDV IV SCH ×2 (10:14→22:34)
[2020-03-04] MEDS: CEFEPIME 1 GM/D5W RTU 1 GM/50 ML RTUPB IV SCH ×2 (10:14→22:33)
--- NOTE | 2020-03-04 10:26 | RADIOLOGY REPORT (SQ) ---
EXAM DESCRIPTION: MRA HEAD WITHOUT IMAGES COMPLETED DATE/TIME: 03/04/2020 9:37 am REASON FOR STUDY: Acute Expressive Aphasia COMPARISON: Same day MRI. TECHNIQUE: Axial 3-D immr-jq-[id number] acquisition imaging performed through the brain in the area of t he [place]. Images reformatted using 3-D MIPS. LIMITATIONS: None. FINDINGS: SOURCE IMAGES: Intracranial findings as seen on same day MRI. 3-D MIP: Nonvisualization of the visualized cervical portions of the right ICA. The intracranial por tions of the right [place] are also non visualized. There is asymmetric diminutive reconstitution of the supraclinoid right ICA with diminutive visualization of the right M1 MCA portion. M2 and distal rig ht MCA branches are not visualized. There is asymmetric decreased visualization of the right A2 port ion of the anterior circulation. The remaining anterior cerebral arteries are well opacified. The l eft ICA and MCA are well opacified. Asymmetrically decreased visualization of the right V4 segment. Basilar artery and bilateral posterior cerebral arteries are well seen. OTHER: Vessel origins are not evaluated on this exam. IMPRESSION: 1. Nonvisualization of the cervical portion of the right ICA. Diminutive reconstitutio n of the right supraclinoid ICA with asymmetric diminutive visualization of the right M1 branch. Rig ht M2 and distal MCA branches are nonvisualized. Findings correspond to same-day MRI findings of lar ge right MCA territory infarct. 2. Nonvisualization of the right V4 segment of the vertebral artery. There is otherwise good visual ization of the basilar and bilateral posterior cerebral arteries. 3. Proximal vessels are not evaluated. Findings conveyed to ILENE Mejía on 03/04/2020 at 1019 hours. TECHNICAL DOCUMENTATION: JOB ID: [id number] 2010 [employer]- All Rights Reserved Reading location - IP/workstation name: [email or web address]
--- NOTE | 2020-03-04 10:28 | RADIOLOGY REPORT (SQ) ---
EXAM DESCRIPTION: MRI HEAD WITHOUT IMAGES COMPLETED DATE/TIME: 03/04/2020 9:37 am REASON FOR STUDY: Acute expressive aphasia COMPARISON: 03/03/2020 TECHNIQUE: Multiplanar imaging includes non-contrasted T1, T2, FLAIR, and diffusion with ADC map seq uences. Images stored on PACS. LIMITATIONS: None. FINDINGS: ANATOMY: No anomalies. Normal vascular flow voids. Pituitary fossa normal. CSF SPACES: Grossly normal in size. There is mild sulcal effacement within the right hemispheres sec ondary to gyral swelling. CEREBRUM: There is a large area of restricted diffusion involving the right MCA territory including t he right frontal, anterior parietal, temporal lobes, insula and basal ganglia. There is associated a bnormal T2 signal within this region. Few additional areas of punctate cortical restricted diffusion involving the right parietal and occipital lobes. No significant midline shift. There is local gyr al swelling and sulcal effacement. No evidence of hemorrhagic conversion. There additional nonspeci fic areas of periventricular and subcortical T2 signal prolongation, likely sequelae of microangiopat hic disease. No mass lesion identified. POSTERIOR FOSSA: No signal alteration. No hemorrhage. No edema, masses or mass effect. Internal jeremi tory canals, cerebello-pontine angles, mastoids normal. DIFFUSION IMAGING: Positive, as detailed above. ORBITS: No masses. Globes normal. Prior cataract surgery. PARANASAL SINUSES: No fluid levels. Mucosa normal. OTHER: No other significant finding. IMPRESSION: Large area of right MCA territory restricted diffusion compatible with acute infarct. I nfarct involves right frontal, temporal, parietal lobes, insula and basal ganglia. No significant ma ss effect or midline shift. No hemorrhagic conversion. Findings conveyed to ILENE Mejía on 03/04/2020 at 1019 hours. EVIDENCE OF ACUTE STROKE: YES. RIGHT MCA TECHNICAL DOCUMENTATION: JOB ID: [id number] 2010 [employer]- All Rights Reserved Reading location - IP/workstation name: [email or web address]
[2020-03-04] MEDS: ENOXAPARIN SODIUM INJ 80 MG/0.8 ML DISP.SYRIN SUBCUT SCH ×2 (11:51→22:33)
--- NOTE | 2020-03-04 12:27 | RADIOLOGY REPORT (SQ) ---
EXAM DESCRIPTION: CAROTID DOPPLER IMAGES COMPLETED DATE/TIME: 03/04/2020 11:52 am REASON FOR STUDY: Acute expressive aphasia COMPARISON: Same day MRI TECHNIQUE: Grayscale ultrasound, Doppler velocity and spectra, and color Doppler images acquired of the extra-cranial carotid and vertebral arteries. Images stored on PACS. LIMITATIONS: None. FINDINGS: RIGHT CAROTID CCA Velocities: No diastolic flow with high resistance waveform. ICA Velocities Peak systolic 14 cm/s. End diastolic 0 cm/s. Proximal ICA/CCA peak systolic ratio 0.4. High resistance waveform without diastolic flow suggestive of more distal occlusion. Grayscale demon strates no high-grade luminal stenosis. No definitive intraluminal clot identified within the cervic al carotid. LEFT CAROTID CCA Velocities: Within normal limits. ICA Velocities Peak systolic 50 cm/s. End diastolic 14 cm/s. Proximal ICA/CCA peak systolic ratio 1.5. Spectra normal. No significant plaque. VERTEBRAL ARTERIES: Right vertebral artery nonvisualized. Antegrade left vertebral artery. SUBCLAVIAN ARTERIES: Not imaged. OTHER: No other significant finding. IMPRESSION: 1. No high-grade luminal stenosis or definitive intraluminal clot identified within the cervical carotids. High resistance waveform and no diastolic flow within the right common and inter nal carotid artery highly suggestive of more downstream occlusion. Correlation with prior MRI favor occlusion at the level of the intracranial right ICA. 2. Right vertebral artery nonvisualized. Antegrade left vertebral artery. COMMENT: Quality ID #[id number]: Velocity criteria are extrapolated from the diameter data as defined by t he Society of Radiologists in Ultrasound Consensus Conference. Radiology 2003: 229; 340-346. TECHNICAL DOCUMENTATION: JOB ID: [id number] 2010 [employer]- All Rights Reserved Reading location - IP/workstation name: [email or web address]
[2020-03-04] MEDS: ASPIRIN 300 MG SUPP, RECTAL PR SCH (14:37)
[2020-03-04] MEDS: DEXTROSE 5%-LACTATED RINGERS 1,000 ML IV PRN (14:37)
[2020-03-04] MEDS ORDERED: DEXTROSE 40% GEL 15 GM TUBE PO PRN ×2 (19:40)
[2020-03-04] MEDS ORDERED: DEXTROSE 50%-WATER 25 GM/50 ML DISP.SYRIN IV PRN ×2 (19:40)
[2020-03-04] MEDS ORDERED: GLUCAGON,HUMAN RECOMB 1 MG INJ IM PRN (19:40)
[2020-03-04] MEDS ORDERED: HYDRALAZINE HCL INJ/PF 20 MG/1 ML SDV IV PRN (19:42)
[2020-03-04] MEDS ORDERED: METOPROLOL TARTRATE PF/INJ 5 MG/5 ML SDV IV PRN (19:42)
--- NOTE | 2020-03-04 19:43 | PDOC PROGRESS REPORT ---
Subjective Progress Note for:: 03/04/20 Subjective:: Patient is a phasic Reason For Visit: ACUTE CVA Physical Exam Vital Signs: Temp Pulse Resp BP Pulse Ox 97.8 F 71 17 156/83 H 98 03/04/20 17:18 03/04/20 17:18 03/04/20 17:18 03/04/20 17:18 03/04/20 17:18 Intake & Output 03/03/20 03/04/20 03/05/20 06:59 06:59 06:59 Intake Total 0 1050 Output Total 30 Balance -30 1050 Weight 64.4 kg General appearance: PRESENT: no acute distress, cooperative Head exam: PRESENT: atraumatic, normocephalic Eye exam: PRESENT: conjunctiva pink. ABSENT: scleral icterus Mouth exam: PRESENT: moist Neck exam: ABSENT: JVD, thyromegaly Respiratory exam: PRESENT: clear to auscultation ciara, symmetrical, unlabored. ABSENT: accessory muscle use Cardiovascular exam: PRESENT: RRR, +S1, +S2 Pulses: PRESENT: normal carotid pulses, +1 pedal pulses bilateral, other - No carotid bruits Vascular exam: PRESENT: normal capillary refill GI/Abdominal exam: PRESENT: normal bowel sounds, soft. ABSENT: distended, tenderness Rectal exam: PRESENT: deferred Extremities exam: ABSENT: calf tenderness, pedal edema Neurological exam: PRESENT: alert, awake, aphasic, other - Left-sided facial droop. Slight leftward tongue deviation. Symmetric rise of soft palate and eyebrows. Left-sided neglect. LUE flaccid. LLE no movement to command minimal spontaneous movement Psychiatric exam: ABSENT: agitated, anxious Focused psych exam: ABSENT: restlessness Skin exam: PRESENT: dry, normal color, warm Results Laboratory Results: 03/04/20 06:32 03/04/20 06:32 03/03/20 03/03/20 03/04/20 18:47 18:47 06:30 WBC 7.7 RBC 4.42 Hgb 13.1 Hct 39.0 MCV 88 MCH 29.5 MCHC 33.5 RDW 14.2 H Plt Count 207 Seg Neutrophils % 89.7 H Sodium 137.8 Potassium 5.1 H Chloride 102 Carbon Dioxide 25 Anion Gap 11 BUN 38 H Creatinine 1.22 Est GFR ( Amer) 51 L Glucose 166 H Calcium 9.2 Total Bilirubin 1.1 AST 24 Alkaline Phosphatase 83 Total Protein 8.3 H Albumin 4.3 Triglycerides Cholesterol LDL Cholesterol Direct VLDL Cholesterol HDL Cholesterol Urine Color YELLOW Urine Appearance SLIGHTLY-CLOUDY Urine pH 5.0 Ur Specific [place] 1.017 Urine Protein NEGATIVE Urine Glucose (UA) NEGATIVE Urine Ketones NEGATIVE Urine Blood SMALL H Urine Nitrite NEGATIVE Ur Leukocyte Esterase SMALL H Urine WBC (Auto) 2 Urine RBC (Auto) 0 03/04/20 03/04/20 06:32 06:32 WBC 7.7 RBC 4.42 Hgb 13.0 Hct 38.6 MCV 88 MCH 29.5 MCHC 33.7 RDW 14.7 H Plt Count 172 Seg Neutrophils % Sodium 140.0 Potassium 4.6 Chloride 103 Carbon Dioxide 26 Anion Gap 11 BUN 39 H Creatinine 1.17 Est GFR ( Amer) 53 L Glucose 147 H Calcium 9.0 Total Bilirubin 1.2 AST 22 Alkaline Phosphatase 71 Total Protein 7.5 Albumin 3.9 Triglycerides 102 Cholesterol 194.68 LDL Cholesterol Direct 114 H VLDL Cholesterol 20.0 HDL Cholesterol 60 Urine Color Urine Appearance Urine pH Ur Specific [place] Urine Protein Urine Glucose (UA) Urine Ketones Urine Blood Urine Nitrite Ur Leukocyte Esterase Urine WBC (Auto) Urine RBC (Auto) 03/03/20 03/03/20 18:47 18:47 Creatine Kinase 38 CK-MB (CK-2) 0.46 Troponin I < 0.012 Impressions: Chest X-Ray 03/03/20 18:37 IMPRESSION: Consolidation in the right mid to lower lung probably a combination of airspace disease and pleural effusion. Head CT 03/03/20 18:37 IMPRESSION: CHRONIC CHANGES OF ATROPHY AND MICROVASCULAR ISCHEMIA. NO ACUTE PROCESS. EVIDENCE OF ACUTE STROKE: NO. Brain MRI with MRA 03/04/20 00:00 IMPRESSION: 1. Nonvisualization of the cervical portion of the right ICA. Diminutive reconstitution of the right supraclinoid ICA with asymmetric dimin utive visualization of the right M1 branch. Right M2 and distal MCA branches are nonvisualized. Findings correspond to same-day MRI findings of large right MCA territory infarct. 2. Nonvisualization of the right V4 segment of the vertebral artery. There is otherwise good visualization of the basilar and bilateral posterior cerebral arteries. 3. Proximal vessels are not evaluated. Findings conveyed to ILENE Mejía on 03/04/2020 at 1019 hours. Head MRI 03/04/20 00:00 IMPRESSION: Large area of right MCA territory restricted diffusion compatible with acute infarct. Infarct involves right frontal, temporal, parietal lobes, insula and basal ganglia. No significant mass effect or midline shift. No hemorrhagic conversion. Findings conveyed to ILENE Mejía on 03/04/2020 at 1019 hours. EVIDENCE OF ACUTE STROKE: YES. RIGHT MCA Carotid Doppler Study 03/04/20 06:00 IMPRESSION: 1. No high-grade luminal stenosis or definitive intraluminal clot identified within the cervical carotids. High resistance waveform and no diastolic flow within the right common and internal carotid artery highly suggestive of more downstream occlusion. Correlation with prior MRI favor occlusion at the level of the intracranial right ICA. 2. Right vertebral artery nonvisualized. Antegrade left vertebral artery. Assessment and Plan - Diagnosis (1) Acute ischemic cerebrovascular accident (CVA) involving right middle cerebral artery territory Is this a current diagnosis for this admission?: Yes Plan: Patient's last known well was 24 hours prior to presentation CT/MRI does not reveal hemorrhagic conversion Continue full anticoagulation with enoxaparin 80 mg subcutaneous every 12 hours Patient did not pass swallow evaluation therefore will not be able to initiate oral antiplatelet therapy Add ASA suppository 300 mg, 1/2 suppository every other day - aspirin suppositories did not come in doses more than 300 mg thus this is the closest we can come to anti-platelet therapy until she is able to take p.o. PT/OT consult Speech consult Unfortunately given the extent of the patient's stroke and her late presentation her hope for meaningful recovery is limited (2) RML pneumonia Qualifiers: Pneumonia type: aspiration pneumonia Aspiration pneumonia type: unspecified Qualified Code(s): J69.0 - Pneumonitis due to inhalation of food and vomit Is this a current diagnosis for this admission?: Yes Plan: Continue cefepime 1 g IV every 12 hours Blood cultures pending (3) Hypertension Qualifiers: Hypertension type: essential hypertension Qualified Code(s): I10 - Essential (primary) hypertension Is this a current diagnosis for this admission?: Yes Plan: BP above goal Start scheduled metoprolol tartrate 2.5 mg IV every 4 hours with hold parameters Start scheduled hydralazine 10 mg IV every 6 hours with hold parameters Continue PRN metoprolol and hydralazine in addition to scheduled medication (4) Dyslipidemia Is this a current diagnosis for this admission?: Yes Plan: Once patient able to take p.o. start atorvastatin 80 mg p.o. daily (5) Gastroesophageal reflux disease Qualifiers: Esophagitis presence: esophagitis presence not specified Qualified Code(s): K21.9 - Gastro-esophageal reflux disease without esophagitis Is this a current diagnosis for this admission?: Yes Plan: Continue famotidine 20 mg IV every 12 hours - Plan Summary Summary: Patient will be admitted to [facility] per the stroke protocol where she will receive routine supportive and symptomatic cares. She will receive Lovenox 1 mg/kg padron bcutaneously every 12 hours. She will receive cefepime 1 g IV every 12 hours. She will receive Ativan 1 mg IV every 4 hours as needed for anxiety or restlessness. She will undergo routine testing per the stroke protocol. She will be n.p.o. until she can be thoroughly evaluated by speech therapy for her ability to swallow. Routine consultations with case management, PT, OT and stroke nurse will be obtained per the stroke protocol. - Time Time Spent with patient: 25-34 minutes Medications reviewed and adjusted accordingly: Yes Anticipated Discharge Disposition: [facility] Anticipated Discharge Timeframe: TBD
[2020-03-04] MEDS: METOPROLOL TARTRATE PF/INJ 5 MG/5 ML SDV IV SCH (20:36)
[2020-03-04] MEDS: HYDRALAZINE HCL INJ/PF 20 MG/1 ML SDV IV SCH (20:36)
--- NOTE | 2020-03-04 21:47 | Progress Note ---
Provider Note Provider Note: On today's progress note inadvertently left out chronic atrial fibrillation on list of diagnoses. Patient is fully anticoagulated which we will continue.
[2020-03-04] MEDS ORDERED: ATORVASTATIN CALCIUM 80 MG TABLET PO SCH (22:00)
[2020-03-04 23:11] LABS: AMORPHOUS SEDIMENT,URINE TRACE /HPF; APPEARANCE,URINE CLOUDY; BILIRUBIN,URINE NEGATIVE (NEGATIVE); COLOR,URINE YELLOW; GLUCOSE, URINE NEGATIVE (NEGATIVE); KETONES,URINE NEGATIVE (NEGATIVE); LEUKOCYTE ESTERASE,URINE NEGATIVE (NEGATIVE); NITRITE,URINE NEGATIVE (NEGATIVE); PROTEIN,URINE 30 mg/dL (NEGATIVE); URINE SPECIFIC GRAVITY 1.021; UROBILINOGEN,URINE NEGATIVE mg/dL (<2.0)
[2020-03-05] MEDS: INSULIN LISPRO 100 UNIT/ML 3 ML VIAL SUBCUT SCH ×4 (01:23→17:32)
[2020-03-05] MEDS: HYDRALAZINE HCL INJ/PF 20 MG/1 ML SDV IV SCH ×4 (01:24→17:41)
[2020-03-05] MEDS: METOPROLOL TARTRATE PF/INJ 5 MG/5 ML SDV IV SCH ×7 (01:24→22:19)
[2020-03-05] MEDS: DEXTROSE 5%-LACTATED RINGERS 1,000 ML IV PRN ×2 (04:12→17:42)
--- NOTE | 2020-03-05 06:34 | PDOC PROGRESS REPORT ---
Subjective Reason For Visit: ACUTE CVA Physical Exam Vital Signs: Temp Pulse Resp BP Pulse Ox 99.2 F 83 18 144/60 H 98 03/05/20 03:42 03/04/20 23:19 03/04/20 23:19 03/04/20 23:19 03/04/20 23:19 Intake & Output 03/03/20 03/04/20 03/05/20 06:59 06:59 06:59 Intake Total 0 0 Output Total 30 150 Balance -30 0 Weight 64.4 kg Results Laboratory Results: 03/04/20 06:32 03/04/20 06:32 03/04/20 03/04/20 03/04/20 06:30 06:32 06:32 WBC 7.7 RBC 4.42 Hgb 13.0 Hct 38.6 MCV 88 MCH 29.5 MCHC 33.7 RDW 14.7 H Plt Count 172 Sodium 140.0 Potassium 4.6 Chloride 103 Carbon Dioxide 26 Anion Gap 11 BUN 39 H Creatinine 1.17 Est GFR ( Amer) 53 L Glucose 147 H Calcium 9.0 Total Bilirubin 1.2 AST 22 Alkaline Phosphatase 71 Total Protein 7.5 Albumin 3.9 Triglycerides 102 Cholesterol 194.68 LDL Cholesterol Direct 114 H VLDL Cholesterol 20.0 HDL Cholesterol 60 Urine Color YELLOW Urine Appearance SLIGHTLY-CLOUDY Urine pH 5.0 Ur Specific [place] 1.017 Urine Protein NEGATIVE Urine Glucose (UA) NEGATIVE Urine Ketones NEGATIVE Urine Blood SMALL H Urine Nitrite NEGATIVE Ur Leukocyte Esterase SMALL H Urine WBC (Auto) 2 Urine RBC (Auto) 0 03/04/20 22:27 WBC RBC Hgb Hct MCV MCH MCHC RDW Plt Count Sodium Potassium Chloride Carbon Dioxide Anion Gap BUN Creatinine Est GFR ( Amer) Glucose Calcium Total Bilirubin AST Alkaline Phosphatase Total Protein Albumin Triglycerides Cholesterol LDL Cholesterol Direct VLDL Cholesterol HDL Cholesterol Urine Color YELLOW Urine Appearance CLOUDY Urine pH 5.0 Ur Specific [place] 1.021 Urine Protein 30 H Urine Glucose (UA) NEGATIVE Urine Ketones NEGATIVE Urine Blood SMALL H Urine Nitrite NEGATIVE Ur Leukocyte Esterase NEGATIVE Urine WBC (Auto) 4 Urine RBC (Auto) 0 03/03/20 03/03/20 18:47 18:47 Creatine Kinase 38 CK-MB (CK-2) 0.46 Troponin I < 0.012 Impressions: Chest X-Ray 03/03/20 18:37 IMPRESSION: Consolidation in the right mid to lower lung probably a combination of airspace disease and pleural effusion. Head CT 03/03/20 18:37 IMPRESSION: CHRONIC CHANGES OF ATROPHY AND MICROVASCULAR ISCHEMIA. NO ACUTE PROCESS. EVIDENCE OF ACUTE STROKE: NO. Brain MRI with MRA 03/04/20 00:00 IMPRESSION: 1. Nonvisualization of the cervical portion of the right ICA. Diminutive reconstitution of the right supraclinoid ICA with asymmetric diminutive visualization of the right M1 branch. Right M2 and distal MCA branches are nonvisualized. Findings correspond to same-day MRI findings of large right MCA territory infarct. 2. Nonvisualization of the right V4 segment of the vertebral artery. There is otherwise good visualization of the basilar and bilateral posterior cerebral arteries. 3. Proximal vessels are not evaluated. Findings conveyed to ILENE Mejía on 03/04/2020 at 1019 hours. Head MRI 03/04/20 00:00 IMPRESSION: Large area of right MCA territory restricted diffusion compatible with acute infarct. Infarct involves right frontal, temporal, parietal lobes, insula and basal ganglia. No significant mass effect or midline shift. No hemorrhagic conversion. Findings conveyed to ILENE Mejía on 03/04/2020 at 1019 hours. EVIDENCE OF ACUTE STROKE: YES. RIGHT MCA Carotid Doppler Study 03/04/20 06:00 IMPRESSION: 1. No high-grade luminal stenosis or definitive intraluminal clot identified within the cervical carotids. High resistance waveform and no diastolic flow within the right common and internal carotid artery highly suggestive of more downstream occlusion. Correlation with prior MRI favor occlusion at the level of the intracranial right ICA. 2. Right vertebral artery nonvisualized. Antegrade left vertebral artery. Assessment and Plan - Diagnosis (1) Acute ischemic cerebrovascular accident (CVA) involving right middle c erebral artery territory Is this a current diagnosis for this admission?: Yes Plan: Patient's last known well was 24 hours prior to presentation CT/MRI does not reveal hemorrhagic conversion Continue full anticoagulation with enoxaparin 80 mg subcutaneous every 12 hours Patient did not pass swallow evaluation therefore will not be able to initiate oral antiplatelet therapy Continue ASA suppository 300 mg, 1/2 suppository every other day - aspirin suppositories did not come in doses more than 300 mg thus this is the closest we can come to anti-platelet therapy until she is able to take p.o. PT/OT consult Speech consult Unfortunately given the extent of the patient's stroke and her late presentation her hope for meaningful recovery is limited (2) Atrial fibrillation Is this a current diagnosis for this admission?: Yes Plan: Patient's atrial fibrillation is likely chronic and persistent given the fact that she was on warfarin [employer] Patient remains in A. fib As noted above continue full dose anticoagulation (3) Dysphagia Is this a current diagnosis for this admission?: Yes Plan: We will need to repeat swallow evaluation, if unable to get adequate bedside swallow evaluation will need barium swallow If patient unable to take p.o. in next 2-3 days will need to place NG tube for enteral feeding (4) RML pneumonia Qualifiers: Pneumonia type: aspiration pneumonia Aspiration pneumonia type: unspecified Qualified Code(s): J69.0 - Pneumonitis due to inhalation of food and vomit Is this a current diagnosis for this admission?: Yes Plan: Continue cefepime 1 g IV every 12 hours Blood cultures 03/03/2020: NG at 24 hours (5) Hypertension Qualifiers: Hypertension type: essential hypertension Qualified Code(s): I10 - Essential (primary) hypertension Is this a current diagnosis for this admission?: Yes Plan: BP above goal Increase scheduled metoprolol tartrate to 5 mg IV every 4 hours with hold parameters Continue scheduled hydralazine 10 mg IV every 6 hours with hold parameters Continue PRN metoprolol and hydralazine in addition to scheduled medication to achieve BP goal (6) Dyslipidemia Is this a current diagnosis for this admission?: Yes Plan: Once patient able to take p.o. start atorvastatin 80 mg p.o. daily (7) Gastroesophageal reflux disease Qualifiers: Esophagitis presence: esophagitis presence not specified Qualified Code(s): K21.9 - Gastro-esophageal reflux disease without esophagitis Is this a current diagnosis for this admission?: Yes Plan: Continue famotidine 20 mg IV every 12 hours - Time Time Spent with patient: 15-24 minutes Medications reviewed and adjusted accordingly: Yes Anticipated Discharge Disposition: Custodial Facility Anticipated Discharge Timeframe: TBD
--- NOTE | 2020-03-05 06:54 | PDOC PROGRESS REPORT ---
Subjective Progress Note for:: 03/05/20 Subjective:: Remains aphasic Reason For Visit: ACUTE CVA Physical Exam Vital Signs: Temp Pulse Resp BP Pulse Ox 99.2 F 83 18 144/60 H 98 03/05/20 03:42 03/04/20 23:19 03/04/20 23:19 03/04/20 23:19 03/04/20 23:19 Intake & Output 03/03/20 03/04/20 03/05/20 06:59 06:59 06:59 Intake Total 0 0 Output Total 30 250 Balance -30 1800 Weight 64.4 kg 76.8 kg General appearance: PRESENT: no acute distress, cooperative - Cooperative currently however RN reports that patient was agitated overnight, obese Head exam: PRESENT: atraumatic, normocephalic Eye exam: PRESENT: conjunctiva pink. ABSENT: scleral icterus Mouth exam: PRESENT: moist, tongue midline Neck exam: ABSENT: carotid bruit, JVD, thyromegaly Respiratory exam: PRESENT: clear to auscultation ciara, decreased breath sounds - Entry diminished at bases bilaterally, symmetrical, unlabored. ABSENT: accessory muscle use Cardiovascular exam: PRESENT: irregular rhythm, +S1, +S2, other - A. fib on telemetry Pulses: PRESENT: normal carotid pulses, normal radial pulses, +1 pedal pulses bilateral GI/Abdominal exam: PRESENT: normal bowel sounds, soft. ABSENT: distended, tenderness Rectal exam: PRESENT: deferred Extremities exam: PRESENT: pedal edema - Trace pedal and pretibial edema bilaterally. ABSENT: calf tenderness Neurological exam: PRESENT: alert, awake, motor sensory deficit, aphasic, other - Left sided facial droop again noted. Slight leftward deviation of tongue. Symmetrical rise of soft palate and eyebrows. Left-sided neglect. LUE flaccid. LLE with minimal spontaneous movement but not to command. No seizure activity. Psychiatric exam: ABSENT: agitated Skin exam: PRESENT: dry, normal color, warm Results Laboratory Results: 03/04/20 06:32 03/04/20 06:32 03/04/20 03/04/20 03/04/20 06:30 06:32 06:32 WBC 7.7 RBC 4.42 Hgb 13.0 Hct 38.6 MCV 88 MCH 29.5 MCHC 33.7 RDW 14.7 H Plt Count 172 Sodium 140.0 Potassium 4.6 Chloride 103 Carbon Dioxide 26 Anion Gap 11 BUN 39 H Creatinine 1.17 Est GFR ( Amer) 53 L Glucose 147 H Calcium 9.0 Total Bilirubin 1.2 AST 22 Alkaline Phosphatase 71 Total Protein 7.5 Albumin 3.9 Triglycerides 102 Cholesterol 194.68 LDL Cholesterol Direct 114 H VLDL Cholesterol 20.0 HDL Cholesterol 60 Urine Color YELLOW Urine Appearance SLIGHTLY-CLOUDY Urine pH 5.0 Ur Specific [place] 1.017 Urine Protein NEGATIVE Urine Glucose (UA) NEGATIVE Urine Ketones NEGATIVE Urine Blood SMALL H Urine Nitrite NEGATIVE Ur Leukocyte Esterase SMALL H Urine WBC (Auto) 2 Urine RBC (Auto) 0 03/04/20 22:27 WBC RBC Hgb Hct MCV MCH MCHC RDW Plt Count Sodium Potassium Chloride Carbon Dioxide Anion Gap BUN Creatinine Est GFR ( Amer) Glucose Calcium Total Bilirubin AST Alkaline Phosphatase Total Protein Albumin Triglycerides Cholesterol LDL Cholesterol Direct VLDL Cholesterol HDL Cholesterol Urine Color YELLOW Urine Appearance CLOUDY Urine pH 5.0 Ur Specific [place] 1.021 Urine Protein 30 H Urine Glucose (UA) NEGATIVE Urine Ketones NEGATIVE Urine Blood SMALL H Urine Nitrite NEGATIVE Ur Leukocyte Esterase NEGATIVE Urine WBC (Auto) 4 Urine RBC (Auto) 0 03/03/20 03/03/20 18:47 18:47 Creatine Kinase 38 CK-MB (CK-2) 0.46 Troponin I < 0.012 Impressions: Chest X-Ray 03/03/20 18:37 IMPRESSION: Consolidation in the right mid to lower lung probably a combination of airspace disease and pleural effusion. Head CT 03/03/20 18:37 IMPRESSION: CHRONIC CHANGES OF ATROPHY AND MICROVASCULAR ISCHEMIA. NO ACUTE P ROCESS. EVIDENCE OF ACUTE STROKE: NO. Brain MRI with MRA 03/04/20 00:00 IMPRESSION: 1. Nonvisualization of the cervical portion of the right ICA. Diminutive reconstitution of the right supraclinoid ICA with asymmetric diminutive visualization of the right M1 branch. Right M2 and distal MCA branches are nonvisualized. Findings correspond to same-day MRI findings of large right MCA territory infarct. 2. Nonvisualization of the right V4 segment of the vertebral artery. There is otherwise good visualization of the basilar and bilateral posterior cerebral arteries. 3. Proximal vessels are not evaluated. Findings conveyed to ILENE Mejía on 03/04/2020 at 1019 hours. Head MRI 03/04/20 00:00 IMPRESSION: Large area of right MCA territory restricted diffusion compatible with acute infarct. Infarct involves right frontal, temporal, parietal lobes, insula and basal ganglia. No significant mass effect or midline shift. No hemorrhagic conversion. Findings conveyed to ILENE Mejía on 03/04/2020 at 1019 hours. EVIDENCE OF ACUTE STROKE: YES. RIGHT MCA Carotid Doppler Study 03/04/20 06:00 IMPRESSION: 1. No high-grade luminal stenosis or definitive intraluminal clot identified within the cervical carotids. High resistance waveform and no diastolic flow within the right common and internal carotid artery highly suggestive of more downstream occlusion. Correlation with prior MRI favor occlusion at the level of the intracranial right ICA. 2. Right vertebral artery nonvisualized. Antegrade left vertebral artery. Assessment and Plan - Diagnosis (1) Acute ischemic cerebrovascular accident (CVA) involving right middle cerebral artery territory Is this a current diagnosis for this admission?: Yes Plan: Patient's last known well was 24 hours prior to presentation CT/MRI does not reveal hemorrhagic conversion Continue full anticoagulation with enoxaparin 80 mg subcutaneous every 12 hours Patient did not pass swallow evaluation therefore will not be able to initiate oral antiplatelet therapy Continue ASA suppository 300 mg, 1/2 suppository every other day - aspirin suppositories did not come in doses more than 300 mg thus this is the closest we can come to anti-platelet therapy until she is able to take p.o. PT/OT consult Speech consult Unfortunately given the extent of the patient's stroke and her late presentation her hope for meaningful recovery is limited (2) Atrial fibrillation Is this a current diagnosis for this admission?: Yes Plan: Patient's atrial fibrillation is likely chronic and persistent given the fact that she was on warfarin RO[address] BOSS Patient remains in A. fib As noted above continue full dose anticoagulation (3) Dysphagia Is this a current diagnosis for this admission?: Yes Plan: We will need to repeat swallow evaluation, if unable to get adequate bedside swallow evaluation will need barium swallow If patient unable to take p.o. in next 2-3 days will need to place NG tube for enteral feeding (4) RML pneumonia Qualifiers: Pneumonia type: aspiration pneumonia Aspiration pneumonia type: unspecified Qualified Code(s): J69.0 - Pneumonitis due to inhalation of food and vomit Is this a current diagnosis for this admission?: Yes Plan: Patient with low-grade fever (99.2) overnight Continue cefepime 1 g IV every 12 hours Blood cultures 03/03/2020: NG at 24 hours (5) Hypertension Qualifiers: Hypertension type: essential hypertension Qualified Code(s): I10 - Essential (primary) hypertension Is this a current diagnosis for this admission?: Yes Plan: BP above goal Increase scheduled metoprolol tartrate to 5 mg IV every 4 hours with hold parameters Continue scheduled hydralazine 10 mg IV every 6 hours with hold parameters Continue PRN metoprolol and hydralazine in addition to scheduled medication to achieve BP goal Patient was on furosemide ROAD BOSS however at this time she appears, hold for now (6) Dyslipidemia Is this a current diagnosis for this admission?: Yes Plan: Once patient able to take p.o. start atorvastatin 80 mg p.o. daily (7) Gastroesophageal reflux disease Qualifiers: Esophagitis presence: esophagitis presence not specified Qualified Code(s): K21.9 - Gastro-esophageal reflux disease without esophagitis Is this a current diagnosis for this admission?: Yes Plan: Continue famotidine 20 mg IV every 12 hours - Time Time Spent with patient: 15-24 minutes Medications reviewed and adjusted accordingly: Yes Anticipated Discharge Disposition: Retirement Facility Anticipated Discharge Timeframe: TBD
[2020-03-05 07:21] LABS: HEMATOCRIT 35.2 % (36.0-47.0); HEMOGLOBIN 12.1 g/dL (12.0-15.5); MEAN CORPUSCULAR HEMOGLOBIN 30.1 pg (27.0-33.4); MEAN CORPUSCULAR HGB CONC 34.4 g/dL (32.0-36.0); MEAN CORPUSCULAR VOLUME 87 fl (80-97); PLATELET COUNT 173 10^3/uL (150-450); RED BLOOD COUNT 4.03 10^6/uL (3.72-5.28); RED CELL DISTRIBUTION WIDTH 14.7 % (11.5-14.0); WHITE BLOOD COUNT 9.1 10^3/uL (4.0-10.5)
[2020-03-05 07:52] LABS: ANION GAP 8 (5-19); BLOOD UREA NITROGEN 30 mg/dL (7-20); CALCIUM 9.2 mg/dL (8.4-10.2); CARBON DIOXIDE 25 mmol/L (22-30); CHLORIDE 107 mmol/L (98-107); GLUCOSE 179 mg/dL (75-110); POTASSIUM 4.2 mmol/L (3.6-5.0)
[2020-03-05] MEDS: CEFEPIME 1 GM/D5W RTU 1 GM/50 ML RTUPB IV SCH ×2 (09:26→22:17)
[2020-03-05] MEDS: FAMOTIDINE INJ/PF 20 MG/2 ML SDV IV SCH ×2 (09:26→22:18)
[2020-03-05] MEDS: ENOXAPARIN SODIUM INJ 80 MG/0.8 ML DISP.SYRIN SUBCUT SCH ×2 (09:27→22:17)
--- NOTE | 2020-03-05 12:17 | XCELERA REPORT ---
[address] [address] Transthoracic Echocardiogram Report Name: CHERYL ESCALONA Age: 84 yrs Gender: Female : 1935 Patient Status: Inpatient Patient Location: [address] [place], [place] [id number] Study Date: 03/04/2020 10:28 AM History: TIA/CVA Height: 60 in Weight: 175 lb BSA: 1.8 m2 Procedure: A complete two-dimensional transthoracic echocardiogram was performed (2D, M-mode, spectral and color flow Doppler). The study was technically difficult with many images being suboptimal in quality. Reason For Study: TIA/CVA Previous Evaluation: No previous studies were available. History: CVA. Ordering Physician: CHESTER BOYCE Performed By: Paige Rodgers Interpretation Summary Left ventricular systolic function is mild to moderately reduced. The Ejection Fraction estimate is 40-45% The right ventricular systolic function is mildly reduced. There is a moderate amount of mitral regurgitation There is no aortic valve stenosis There is a moderate amount of tricuspid regurgitation There is moderate to severe pulmonary hypertension by echo There is no pericardial effusion. MMode/2D Measurements & Calculations RVDd: 3.6 cm LVIDd: 4.5 cm FS: 23.2 % Ao root diam: 2.6 cm IVSd: 0.98 cm LVIDs: 3.4 cm EDV(Teich): 90.2 ml Ao root area: 5.4 cm2 LVPWd: 1.0 cm ESV(Teich): 48.1 ml LA dimension: 4.8 cm EF(Teich): 46.6 % Doppler Measurements & Calculations MV E max nanci: MV P1/2t max nanci: Ao V2 max: LV V1 max P.4 cm/sec 120.9 cm/sec 151.2 cm/sec 3.2 mmHg MV A max nanci: MV P1/2t: 38.5 msec Ao max P.1 mmHg LV V1 max: 38.0 cm/sec MVA(P1/2t): 5.7 cm2 89.3 cm/sec MV E/A: 3.2 MV dec slope: LV dP/dt: 699.0 mmHg/s 920.7 cm/sec2 MV dec time: 0.13 sec PA V2 max: TR max nanci: MV P1/2t-pr_phl: 84.4 cm/sec 396.4 cm/sec 38.5 msec PA max P.8 mmHgTR max P.8 mmHg Left Ventricle The left ventricle is borderline dilated. Left ventricular systolic function is mild to moderately reduced. The Ejection Fraction estimate is 40-45%. LV diastolic function not assessed. There is mild global hypokinesis of the left ventricle. Septal motion is consistent with conduction abnormality. Right Ventricle The right ventricle is mildly dilated. The right ventricular systolic function is mildly reduced. Atria The right atrium is moderate to severely dilated. The left atrium is severely dilated. The interatrial septum is intact with no evidence for an atrial septal defect. There is no Doppler evidence for an interatrial shunt. Mitral Valve Calcified mitral apparatus. There is no mitral valve stenosis. There is a moderate amount of mitral regurgitation. Aortic Valve The aortic valve is sclerotic, but shows no functional abnormality. The aortic valve is mildly calcified. The aortic valve opens well. There is no aortic valve stenosis. There is a trace amount of aortic regurgitation. Tricuspid Valve The tricuspid valve is not well visualized, but is grossly normal. There is a moderate amount of tricuspid regurgitation. Right ventricular systolic pressure is estimated to be elevated at >60mmHg. There is moderate to severe pulmonary hypertension by echo. Pulmonic Valve The pulmonic valve is not well visualized. There is a trace amount of pulmonic regurgitation. Great Vessels The aortic root is normal size. The inferior vena cava appeared normal and decreased < 50% with respiration (RAP 10-15 mmHg). Effusions There is no pericardial effusion. : CHESTER BOYCE Anil
--- NOTE | 2020-03-05 13:53 | EKG REPORT ---
SEVERITY:- ABNORMAL ECG - SINUS TACHYCARDIA AALIYAH, CONSIDER BIATRIAL ABNORMALITIES NONSPECIFIC INTRAVENTRICULAR CONDUCTION DELAY LBBB type. REPEAT EKG : Confirmed by: Zoe Anthony 05-Mar-2020 13:53:28
[2020-03-06] MEDS: HYDRALAZINE HCL INJ/PF 20 MG/1 ML SDV IV SCH ×4 (00:20→18:18)
[2020-03-06] MEDS: INSULIN LISPRO 100 UNIT/ML 3 ML VIAL SUBCUT SCH ×4 (00:21→18:08)
[2020-03-06] MEDS: METOPROLOL TARTRATE PF/INJ 5 MG/5 ML SDV IV SCH ×5 (02:59→18:18)
[2020-03-06] MEDS: DEXTROSE 5%-LACTATED RINGERS 1,000 ML IV PRN (06:24)
[2020-03-06 06:31] LABS: HEMATOCRIT 34.9 % (36.0-47.0); HEMOGLOBIN 11.7 g/dL (12.0-15.5); MEAN CORPUSCULAR HEMOGLOBIN 29.8 pg (27.0-33.4); MEAN CORPUSCULAR HGB CONC 33.4 g/dL (32.0-36.0); MEAN CORPUSCULAR VOLUME 89 fl (80-97); PLATELET COUNT 157 10^3/uL (150-450); RED BLOOD COUNT 3.91 10^6/uL (3.72-5.28); RED CELL DISTRIBUTION WIDTH 14.8 % (11.5-14.0); WHITE BLOOD COUNT 9.9 10^3/uL (4.0-10.5)
[2020-03-06 06:53] LABS: ANION GAP 10 (5-19); BLOOD UREA NITROGEN 29 mg/dL (7-20); CALCIUM 8.9 mg/dL (8.4-10.2); CARBON DIOXIDE 23 mmol/L (22-30); CHLORIDE 108 mmol/L (98-107); GLUCOSE 180 mg/dL (75-110); PHOSPHORUS 2.8 mg/dL (2.5-4.5); POTASSIUM 3.9 mmol/L (3.6-5.0)
[2020-03-06] MEDS ORDERED: NORMAL SALINE 500 ML IV PRN (09:32)
[2020-03-06] MEDS: FAMOTIDINE INJ/PF 20 MG/2 ML SDV IV SCH (09:42)
[2020-03-06] MEDS: ENOXAPARIN SODIUM INJ 80 MG/0.8 ML DISP.SYRIN SUBCUT SCH (09:42)
[2020-03-06] MEDS ORDERED: NORMAL SALINE 1000 ML 1,000 ML IV PRN (09:42)
[2020-03-06] MEDS: CEFEPIME 1 GM/D5W RTU 1 GM/50 ML RTUPB IV SCH (09:43)
[2020-03-06] MEDS ORDERED: HYDRALAZINE HCL INJ/PF 20 MG/1 ML SDV IV PRN (09:49)
--- NOTE | 2020-03-06 09:50 | PDOC PROGRESS REPORT ---
Subjective Progress Note for:: 03/06/20 Subjective:: Patient remains a phasic but less arousable than yesterday Reason For Visit: ACUTE CVA Physical Exam Vital Signs: Temp Pulse Resp BP Pulse Ox 97.5 F 77 16 135/74 H 95 03/06/20 08:03 03/06/20 08:03 03/06/20 08:03 03/06/20 08:03 03/06/20 08:03 Intake & Output 03/05/20 03/06/20 03/07/20 06:59 06:59 06:59 Intake Total 2050 2150 Output Total 250 400 Balance 1800 1750 Weight 76.8 kg 77.8 kg General appearance: PRESENT: no acute distress, obese Head exam: PRESENT: atraumatic, normocephalic Eye exam: PRESENT: conjunctiva pink, other - PERRL. ABSENT: scleral icterus Mouth exam: PRESENT: moist. ABSENT: tongue midline Neck exam: ABSENT: JVD Respiratory exam: PRESENT: clear to auscultation ciara, decreased breath sounds - Entry diminished at bases bilaterally, symmetrical, unlabored. ABSENT: accessory muscle use Cardiovascular exam: PRESENT: irregular rhythm, other - A. fib Pulses: PRESENT: normal carotid pulses, +1 pedal pulses bilateral Vascular exam: PRESENT: normal capillary refill GI/Abdominal exam: PRESENT: normal bowel sounds, soft. ABSENT: distended, tenderness Rectal exam: PRESENT: deferred Extremities exam: PRESENT: other - Trace pretibial edema bilaterally. ABSENT: calf tenderness Neurological exam: PRESENT: awake, motor sensory deficit, aphasic, other - Slight leftward tongue deviation. Left-sided facial droop. LUE flaccid. LLE minimal spontaneous movement, to command. No seizure activity Psychiatric exam: ABSENT: agitated Skin exam: PRESENT: dry, normal color, warm Results Laboratory Results: 03/06/20 05:55 03/06/20 05:55 03/06/20 03/06/20 05:55 05:55 WBC 9.9 RBC 3.91 Hgb 11.7 L Hct 34.9 L MCV 89 MCH 29.8 MCHC 33.4 RDW 14.8 H Plt Count 157 Sodium 141.4 Potassium 3.9 Chloride 108 H Carbon Dioxide 23 Anion Gap 10 BUN 29 H Creatinine 1.22 Est GFR ( Amer) 51 L Glucose 180 H Calcium 8.9 Phosphorus 2.8 Magnesium 2.2 03/03/20 03/03/20 18:47 18:47 Creatine Kinase 38 CK-MB (CK-2) 0.46 Troponin I < 0.012 Impressions: Chest X-Ray 03/03/20 18:37 IMPRESSION: Consolidation in the right mid to lower lung probably a combination of airspace disease and pleural effusion. Head CT 03/03/20 18:37 IMPRESSION: CHRONIC CHANGES OF ATROPHY AND MICROVASCULAR ISCHEMIA. NO ACUTE PROCESS. EVIDENCE OF ACUTE STROKE: NO. Brain MRI with MRA 03/04/20 00:00 IMPRESSION: 1. Nonvisualization of the cervical portion of the right ICA. Diminutive reconstitution of the right supraclinoid ICA with asymmetric diminutive visualization of the right M1 branch. Right M2 and distal MCA branches are nonvisualized. Findings correspond to same-day MRI findings of large right MCA territory infarct. 2. Nonvisualization of the right V4 segment of the vertebral artery. There is otherwise good visualization of the basilar and bilateral posterior cerebral arteries. 3. Proximal vessels are not evaluated. Findings conveyed to ILENE Mejía on 03/04/2020 at 1019 hours. Head MRI 03/04/20 00:00 IMPRESSION: Large area of right MCA territory restricted diffusion compatible with acute infarct. Infarct involves right frontal, temporal, parietal lobes, insula and basal ganglia. No significant mass effect or midline shift. No hemorrhagic conversion. Findings conveyed to ILENE Mejía on 03/04/2020 at 1019 hours. EVIDENCE OF ACUTE STROKE: YES. RIGHT MCA Carotid Doppler Study 03/04/20 06:00 IMPRESSION: 1. No high-grade luminal stenosis or definitive intraluminal clot identified within the cervical carotids. High resistance waveform and no diastolic flow within the right common and internal carotid artery highly suggestive of more downstream occlusion. Correlation with prior MRI favor occlusion at the level of the intracranial right ICA. 2. Right vertebral artery nonvisualized. Antegrade left vertebral artery. Assessment and Plan - Diagnosis (1) Acute ischemic cerebrovascular accident (CVA) involving right middle cerebral artery territory Is this a current diagnosis for this admission?: Yes Plan: Patient's last known well was 24 hours prior to presentation Initial CT/MRI do not reveal hemorrhagic conversion Patient less arousable today Stat CT of head to rule out hemorrhagic conversion Continue full anticoagulation with enoxaparin 80 mg subcutaneous every 12 hours this time Patient did not pass swallow evaluation therefore will not be able to initiate oral antiplatelet therapy Continue ASA suppository 300 mg, 1/2 suppository every other day - aspirin suppositories did not come in doses more than 300 mg thus this is the closest we can come to anti-platelet therapy until she is able to take p.o. PT/OT consult Speech consult Unfortunately given the extent of the patient's stroke and her late presentation her hope for meaningful recovery is limited (2) Oliguria Is this a current diagnosis for this admission?: Yes Plan: Patient with minimal UOP overnight Bladder scan with minimal urine present in bladder Give 500 cc NS over 2 hours and reevaluate, patient may need additional fluid however given her elevated BP I do not want to give her excess volume and drive her BP up (3) Atrial fibrillation Is this a current diagnosis for this admission?: Yes Plan: Patient's atrial fibrillation is likely chronic and persistent 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 in next 2-3 days will need to place NG tube for enteral feeding (5) RML pneumonia Qualifiers: Pneumonia type: aspiration pneumonia Aspiration pneumonia type: unspecified Qualified Code(s): J69.0 - Pneumonitis due to inhalation of food and vomit Is this a current diagnosis for this admission?: Yes Plan: Patient spiked fever to 101.6 overnight Repeat blood culture sent Continue cefepime 1 g IV every 12 hours Blood cultures 03/03/2020: NG at 48 hours Cultures 03/06/2020: Pending (6) Hypertension Qualifiers: Hypertension type: essential hypertension Qualified Code(s): I10 - Essential (primary) hypertension Is this a current diagnosis for this admission?: Yes Plan: BP remains above goal (120-140) Continue scheduled metoprolol tartrate to 5 mg IV every 4 hours with hold parameters Increase scheduled hydralazine 20 mg IV every 6 hours with hold parameters Continue PRN metoprolol and hydralazine in addition to scheduled medication to achieve BP goal 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 start atorvastatin 80 mg p.o. daily (8) Gastroesophageal reflux disease Qualifiers: Esophagitis presence: esophagitis presence not specified Qualified Code(s): K21.9 - Gastro-esophageal reflux disease without esophagitis Is this a current diagnosis for this admission?: Yes Plan: Continue famotidine 20 mg IV every 12 hours - Time Time Spent with patient: 15-24 minutes Medications reviewed and adjusted accordingly: Yes Anticipated Discharge Disposition: Intermediate Care Facility Anticipated Discharge Timeframe: TBD
--- NOTE | 2020-03-06 12:07 | RADIOLOGY REPORT (SQ) ---
EXAM DESCRIPTION: CT HEAD WITHOUT IMAGES COMPLETED DATE/TIME: 03/06/2020 11:02 am REASON FOR STUDY: Stroke COMPARISON: 03/03/2020 TECHNIQUE: Axial images acquired through the brain without intravenous contrast. Images reviewed wi th bone, brain and subdural windows. Additional sagittal and coronal reconstructions were generated. Images stored on PACS. All CT scanners at this facility use dose modulation, iterative reconstruction, and/or weight based d osing when appropriate to reduce radiation dose to as low as reasonably achievable (ALARA). [facility]: Dose Right [facility]: CareDose [facility]: Dose Right [facility]: Teradose 4D [facility]: [employer] RADIATION DOSE: CT Rad equipment meets quality standard of care and radiation dose reduction techniq ues were employed. CTDIvol: 53.2 mGy. DLP: 964 mGy-cm. mGy. LIMITATIONS: None. FINDINGS: VENTRICLES: Effacement of the right lateral ventricle related to stroke in evolution, see below. Ventricles otherwise normal. No intraventricular hemorrhage developing. CEREBRUM: Diffuse low density throughout the right MCA distribution. Progressive compared to prior c onsistent with evolving large CVA. No hemorrhage or significant shift currently. CEREBELLUM: No masses. No hemorrhage. No alteration of density. No evidence for acute infarction. EXTRAAXIAL SPACES: No fluid collections. No masses. ORBITS AND GLOBE: No intra- or extraconal masses. Normal contour of globe without masses. CALVARIUM: No fracture. PARANASAL SINUSES: No fluid or mucosal thickening. SOFT TISSUES: No mass or hematoma. OTHER: No other significant finding. IMPRESSION: 1. Right evolving CVA. Generalized worsening edema throughout the area of MCA infarct with effacemen t of the right lateral ventricle now noted. No hemorrhage. EVIDENCE OF ACUTE STROKE: NO. COMMENT: Quality ID # [id number]: Final reports with documentation of one or more dose reduction techniques (e.g., Automated exposure control, adjustment of the mA and/or kV according to patient size, use of iterative reconstruction technique) TECHNICAL DOCUMENTATION: JOB ID: [id number] 2010 [employer]- All Rights Reserved Reading location - IP/workstation name: [email or web address]
--- NOTE | 2020-03-06 13:06 | Progress Note ---
Provider Note Provider Note: CT results reviewed. Patient now developing edema with increased intracranial pressure causing effacement of right lateral ventricle. I have contacted [facility] regarding transfer of patient to higher level of care. Patient remains clinically unchanged from prior exam.
--- NOTE | 2020-03-06 14:22 | Progress Note ---
Provider Note Provider Note: I have spoken with the on-call neurologist at [facility] (Marcus Morales) and he is requested that we upload patient's images to [employer]. In the interim he recommended initiating 3% saline at 50 cc/h which has been ordered. Will monitor BMP every 4 hours.
[2020-03-06] MEDS ORDERED: SODIUM CHLORIDE 3% 500 ML IV ONE ×2 (15:00→16:15)
[2020-03-06] MEDS: ASPIRIN 300 MG SUPP, RECTAL PR SCH (15:53)
[2020-03-06] MEDS ORDERED: SODIUM CHLORIDE 3% 500 ML IV PRN (16:21)
[2020-03-06 17:12] VITALS: BP 130/63
--- NOTE | 2020-03-06 17:48 | Progress Note ---
Provider Note Provider Note: This note represents documentation for the previous 3 hours. Spoke with MOJGAN Arredondo of the neurology department at [facility], [place] who had discussed patient with Dr. Morales. Recommendations were made to stop antiplatelet therapy as well as anticoagulation at this time and repeat CT of the brain in a.m. They also recommend a serum sodium goal of 150-155. They inform me that at this time they do not recommend treatment beyond hypertonic saline. They recommended discussing patient's prognosis with family to see if they would be interested in palliative care. I did so and the patient's son stated that they wish for Ms. Sorensen to remain full code. Given this fact I again contacted [facility], [place] to request transfer. I spoke with Butch Bashir MD who is one of the hospitalists at the facility and he accepted the patient for transfer to their neurology unit. They are ap proaching saturation and as a result this process may take up to 24 hours. They did recommend that if the patient's clinical status deteriorated that we contact them again and they could evaluate her to transfer into their ICU.
--- NOTE | 2020-03-06 17:52 | ADVANCED CARE ---
Attendance: Via telephone Young Justin (patient's son) and Norberto Mejía APRN, [facility] Resuscitation Status: Full Code Discussion: I spoke at great length with patient's son regarding patient's diagnosis current condition. We discussed the patient's wishes and he and his brother's wishes and at this time they wish for the patient to remain a full code. We discussed CPR, endotracheal intubation, hemodialysis, surgical intervention, and all other life-sustaining/life maintaining modalities. He voiced his desire that in the event his mother sustains a cardiopulmonary arrest that we do anything and everything to preserve her life. He also requested that we pursue transfer to higher level of care. Care Planning Goals: Obtain full CODE STATUS Pursue transfer to higher level of care ([facility]) Document(s) Completed: None Time Spent: 22 minutes
--- NOTE | 2020-03-06 18:53 | PDOC TRANSFER SUMMARY ---
General Admission Date/PCP: 03/03/20 22:15 CHESTER BOYCE MD Resuscitation Status: Full Code - Transfer Diagnosis (1) Acute ischemic cerebrovascular accident (CVA) involving right middle cerebral artery territory Is this a current diagnosis for this admission?: Yes (2) Oliguria Is this a current diagnosis for this admission?: Yes (3) Atrial fibrillation Is this a current diagnosis for this admission?: Yes (4) Dysphagia Is this a current diagnosis for this admission?: Yes (5) RML pneumonia Is this a current diagnosis for this admission?: Yes (6) Hypertension Is this a current diagnosis for this admission?: Yes (7) Dyslipidemia Is this a current diagnosis for this admission?: Yes (8) Gastroesophageal reflux disease Is this a current diagnosis for this admission?: Yes - Transfer Medications Home Medications: Furosemide [Lasix 40 mg Tablet] 40 mg PO BID 03/03/20 Lisinopril [Zestril] 2.5 mg PO DAILY 03/03/20 Metoprolol Succinate [Toprol Xl] 100 mg PO DAILY 03/03/20 Warfarin Sodium [Jantoven 5 mg Tablet] 5 mg PO QHS 03/03/20 Transfer Medications: Current Medications Acetaminophen (Tylenol 650 Mg Supp) 650 mg TX Q4HP PRN PRN Reason: Temp greater than 101F Stop: 04/02/20 22:02 Last Admin: 03/06/20 06:13 Dose: 650 mg Documented by: Famotidine (Pepcid Inj/Pf 20 Mg/2 Ml Sdv) 20 mg IV Q12 [facility] Stop: 04/02/20 22:14 Last Admin: 03/06/20 09:42 Dose: 20 mg Documented by: Hydralazine HCl (Apresoline Inj/Pf 20 Mg/1 Ml Sdv) 10 mg IV Q6 [facility] Stop: 04/03/20 19:44 Last Admin: 03/06/20 12:53 Dose: 10 mg Documented by: Hydralazine HCl (Apresoline Inj/Pf 20 Mg/1 Ml Sdv) 20 mg IV Q4HP PRN PRN Reason: For SBP > 140 or DBP >100 Stop: 04/02/20 22:06 Cefepime HCl 1 gm/ Sodium (Chloride) 50 mls @ 100 mls/hr IV Q12 [facility] Stop: 03/11/20 09:59 Sodium Chloride (Sodium Chloride 3% (Hypertonic) 500 Ml Iv Bag) 500 mls @ 50 mls/hr IV CONTINUOUS PRN PRN Reason: THIS MED IS NOT "PRN" Stop: 03/07/20 16:20 Lorazepam (Ativan Inj 2 Mg/1 Ml Vial) 1 mg IV Q4HP PRN PRN Reason: ANXIETY/AGITATION Stop: 03/10/20 22:06 Metoprolol Tartrate (Lopressor Inj/Pf 5 Mg/5 Ml Sdv) 2.5 mg IV Q4HP PRN PRN Reason: For SBP > 140 or DBP >100 Stop: 04/02/20 22:06 Metoprolol Tartrate (Lopressor Inj/Pf 5 Mg/5 Ml Sdv) 5 mg IV Q4H [facility] Stop: 04/05/20 09:59 Last Admin: 03/06/20 14:57 Dose: 5 mg Documented by: Ondansetron HCl (Zofran Inj/Pf 4 Mg/2 Ml Sdv) 4 mg IV Q4HP PRN PRN Reason: FOR NAUSEA/VOMITING Stop: 04/02/20 22:02 Sodium Chloride (Saline Flush 2.5 Ml Monoject Prefil Syrin) 2.5 ml IV Q8 [facility] Stop: 04/02/20 21:59 Last Admin: 03/06/20 14:57 Dose: Not Given Documented by: - Allergies Allergies/Adverse Reactions: No Known Allergies Allergy (Verified 12/12/17 10:23) - Diet/Activity Discharge Diet: Other (Comments) - N.p.o. at this time 2/2 dysphasia/failed swallow eval Discharge Activity: Bedrest, Other - PT/OT Hospital Course Hospital Course: Izzy Sorensen is an 84-year-old female with PMH significant for atrial fibrillation (on chronic anticoagulation therapy with warfarin), HTN, dyslipidemia, prior ischemic CVA, obesity, GERD, arthritis, and psoriasis who on 03/03/2020 presented to the ED via EMS with left-sided weakness. Additionally, the patient had expressive aphasia and confusion. According to the family they went to visit the patient earlier in the day and found her confused and noticed that she was unable to move her left side. Of note, according to the family the patient but had been out of her warfarin for approximately 2 weeks and had only restarted it 2 days prior. In the ED an EKG was completed which did reveal atrial fibrillation. A CXR was also completed which revealed right middle lobe consolidation which was thought to represent a combination of airspace disease and pleural effusion. Patient was started on IV antibiotics. A CT of the head revealed chronic changes of atrophy and microvascular ischemia but no acute process. Given the patient's symptoms an MRI/MRA was also completed. The MRI revealed a large area of right MCA territory restricted directed diffusion compatible with acute infarct. The infarct involved the right frontal, temporal, and parietal lobes as well as the insula and basal ganglia. There was no significant mass-effect or midline shift. There was also no hemorrhagic conversion. The MRA revealed nonvisualiza tion of the cervical portion of the right ICA, diminutive reconstitution of the right supraclinoid ICA with asymptomatic diminished visualization of the right M1 branch. Right M2 and distal MCA branches were not visualized. These findings corresponded to the RI findings of large right MCA territory infarct. There was also nonvisualization of the right V4 segment of the vertebral artery. There was otherwise good visualization of the basilar and bilateral posterior cerebral arteries the proximal vessels were not evaluated. Carotid Dopplers revealed no high-grade luminal stenosis or definitive intra-luminal clot within the cervical carotids. There was high resistance waveform and no diastolic flow within the right common and internal carotid artery which was highly suggestive of more downstream occlusion. Correlation with prior MRI favored occlusion at the level of intracranial right ICA. The patient was started on standard stroke treatment to include anticoagulation for atrial fibrillation and antiplatelet therapy. Blood pressure was managed with IV metoprolol and hydralazine. Patient failed a swallow study or was not started on statin therapy. On exam she had a aphasia, left-sided gaze, slight leftward deviation of her tongue, and left neglect/paralysis. Her LUE was fl accid and she did move her LLE slightly ad janna. but not to command. She also had intermittent tremor of her RUE. She did not have any seizure activity. On the morning of 03/06/2020 upon exam the patient was found to be less responsive than the prior day. A stat CT of the brain was ordered which revealed evolving right CVA. There was generalized worsening edema throughout the area of MCA infarct with effacement of the right lateral ventricle which had not been noted on prior exam. There was no hemorrhagic conversion. Patient was started on 3% hypertonic saline at a rate of 50 cc/h with a goal serum sodium of 150-155 arrangements were made to transfer the patient to [facility] under the care of Dr. Bashir (hospitalist) with consultation to neurology. At the time of this dictation patient was hemodynamically stable. Physical Exam Vital Signs: Temp Pulse Resp BP Pulse Ox 97.6 F 84 16 130/63 H 97 03/06/20 15:53 03/06/20 15:53 03/06/20 15:53 03/06/20 15:53 03/06/20 15:53 Intake & Output 03/05/20 03/06/20 03/07/20 06:59 06:59 06:59 Intake Total 2050 2150 1062 Output Total 250 400 Balance 1800 1750 1062 Weight 76.8 kg 77.8 kg General appearance: PRESENT: no acute distress, obese Head exam: PRESENT: atraumatic Eye exam: PRESENT: conjunctiva pink. ABSENT: scleral icterus Mouth exam: PRESENT: moist Neck exam: ABSENT: JVD, thyromegaly Respiratory exam: PRESENT: clear to auscultation ciara, decreased breath sounds - Air entry diminished at bases, symmetrical, unlabored. ABSENT: accessory muscle use Cardiovascular exam: PRESENT: irregular rhythm, +S1, +S2, other - Atrial fi brillation on telemetry Pulses: PRESENT: normal carotid pulses Vascular exam: PRESENT: normal capillary refill GI/Abdominal exam: PRESENT: normal bowel sounds, soft. ABSENT: distended, tenderness Rectal exam: PRESENT: deferred Extremities exam: ABSENT: pedal edema Neurological exam: PRESENT: awake, other - Left-sided facial droop noted with left-sided gaze. Left pupil 2.5 mm/right pupil 2 mm, reactive to light. Left sided neglect, LUE flaccid LLE with minimal spontaneous movement but nothing to command. Psychiatric exam: PRESENT: agitated, other - Minimally agitated Skin exam: PRESENT: dry, normal color, warm Results Laboratory Results: 03/06/20 05:55 03/06/20 03/06/20 05:55 05:55 WBC 9.9 RBC 3.91 Hgb 11.7 L Hct 34.9 L MCV 89 MCH 29.8 MCHC 33.4 RDW 14.8 H Plt Count 157 Sodium 141.4 Potassium 3.9 Chloride 108 H Carbon Dioxide 23 Anion Gap 10 BUN 29 H Creatinine 1.22 Est GFR ( Amer) 51 L Glucose 180 H Calcium 8.9 Phosphorus 2.8 Magnesium 2.2 03/03/20 03/03/20 18:47 18:47 Creatine Kinase 38 CK-MB (CK-2) 0.46 Troponin I < 0.012 Impressions: Chest X-Ray 03/03/20 18:37 IMPRESSION: Consolidation in the right mid to lower lung probably a combination of airspace disease and pleural effusion. Brain MRI with MRA 03/04/20 00:00 IMPRESSION: 1. Nonvisualization of the cervical portion of the right ICA. Diminutive reconstitution of the right supraclinoid ICA with asymmetric diminutive visualization of the right M1 branch. Right M2 and distal MCA branches are nonvisualized. Findings correspond to same-day MRI findings of large right MCA territory infarct. 2. Nonvisualization of the right V4 segment of the vertebral artery. There is otherwise good visualization of the basilar and bilateral posterior cerebral arteries. 3. Proximal vessels are not evaluated. Findings conveyed to ILENE Mejía on 03/04/2020 at 1019 hours. Head MRI 03/04/20 00:00 IMPRESSION: Large area of right MCA territory restricted diffusion compatible with acute infarct. Infarct involves right frontal, temporal, parietal lobes, insula and basal ganglia. No significant mass effect or midline shift. No hemorrhagic conversion. Findings conveyed to ILENE Mejía on 03/04/2020 at 1019 hours. EVIDENCE OF ACUTE STROKE: YES. RIGHT MCA Carotid Doppler Study 03/04/20 06:00 IMPRESSION: 1. No high-grade luminal stenosis or definitive intraluminal clot identified within the cervical carotids. High resistance waveform and no diast olic flow within the right common and internal carotid artery highly suggestive of more downstream occlusion. Correlation with prior MRI favor occlusion at the level of the intracranial right ICA. 2. Right vertebral artery nonvisualized. Antegrade left vertebral artery. Head CT 03/06/20 00:00 IMPRESSION: 1. Right evolving CVA. Generalized worsening edema throughout the area of MCA infarct with effacement of the right lateral ventricle now noted. No hemorrhage. EVIDENCE OF ACUTE STROKE: NO. Status: Imported from PACS Plan Discharge Plan: Transfer patient to [facility] stroke floor Time Spent: Greater than 30 Minutes
[2020-03-06 20:06] LABS: ANION GAP 8 (5-19); BLOOD UREA NITROGEN 29 mg/dL (7-20); CALCIUM 8.5 mg/dL (8.4-10.2); CARBON DIOXIDE 23 mmol/L (22-30); CHLORIDE 114 mmol/L (98-107); GLUCOSE 128 mg/dL (75-110); POTASSIUM 3.9 mmol/L (3.6-5.0)
[2020-03-06] MEDS ORDERED: CEFEPIME HCL IV SCH (22:00)
[2020-03-06] MEDS ORDERED: NORMAL SALINE IV SCH (22:00)
== END 2020-03-06 19:54 | disposition short-term general hospital (02) | DRG 64 ==
LOC: ER 18:35 → EH 22:15 → 3S 03-04 01:10
PROVIDERS: ADMIT Emergency Medicine; ATTEND Nurse Practitioner
DX: I63.511 Cerebral infarction due to unspecified occlusion or stenosis of right middle cerebral artery (principal); J69.0 Pneumonitis due to inhalation of food and vomit; G81.94 Hemiplegia, unspecified affecting left nondominant side; I48.19 Other persistent atrial fibrillation; R34 Anuria and oliguria; R13.10 Dysphagia, unspecified; I10 Essential (primary) hypertension; E78.5 Hyperlipidemia, unspecified; K21.9 Gastro-esophageal reflux disease without esophagitis; E66.9 Obesity, unspecified; L40.9 Psoriasis, unspecified; R47.01 Aphasia; Z60.2 Problems related to living alone; Z79.899 Other long term (current) drug therapy; Z79.01 Long term (current) use of anticoagulants; Z68.27 Body mass index [BMI] 27.0-27.9, adult; Z91.14 Patient's other noncompliance with medication regimen; Z82.3 Family history of stroke; Z82.49 Family history of ischemic heart disease and other diseases of the circulatory system
CPT/HCPCS: 36415; 70450; 70544; 70551; 71045; 80048; 80053; 80061; 81001; 82550; 82553; 82962; 83735; 84100; 84484; 85025; 85027; 85610; 85730; 87040; 93005; 93010; 93306; 93880; 99285; J0360; J0692; J1650; J1815; J3490; J7030; J7040; J7121; S0028